=== PATIENT | male | born 1970 | race Caucasian/White ===

== ENCOUNTER 2024-12-26 18:47 | Outpatient (CLI) | payer OTHER, SELFPAY ==
--- NOTE | ~2024-12-26 | CT_ITS ---
CLINICAL INDICATION: Cough and shortness of breath COMPARISON: None. TECHNIQUE: Multiple contiguous axial images of the chest, abdomen and pelvis were performed without t he administration of intravenous contrast The dose-length product (DLP) was 1864.30 mGy-cm. Automated exposure control and iterative reconstruction technique were employed. FINDINGS/OBSERVATIONS: Chest: Incomplete evaluation of a large, densely calcified thyroid gland. Large right and trace left-sided pleural effusion with adjacent compressive atelectasis. Multiple nonpathologically enlarged lymph nodes are identified within the mediastinum, a nonspecific finding. The heart is of normal size, without pericardial effusion. Trace degenerative disease within the lower cervical and thoracic spine without acute compression fra cture. Liver: The liver demonstrates homogeneous attenuation and is enlarged measuring 20 cm in longitudinal dimens ion. Gallbladder and biliary system: Multiple stones are identified within the gallbladder which is only minimally distended, and otherwis e unremarkable. Pancreas: Limited evaluation of the pancreas secondary to the lack of intravenous contrast. Spleen: Punctate calcifications identified within the splenic parenchyma, suggesting prior granulomat ous disease. The remainder of the spleen demonstrates homogeneous attenuation and is not enlarged measuring 10 cm in longitudinal dimension. Kidneys: The bilateral kidneys are unremarkable, without hydronephrosis or renal calculi. Adrenal glands: Unremarkable. Gastrointestinal tract: Significant fecal stasis within the colon. Appendix: The air-filled appendix is of normal caliber (axial series, images 184 through 199). Vasculature: Unremarkable. Lymph nodes: Limited evaluation without intravenous contrast Pelvic structures: The bladder is only minimally distended, and demonstrates moderate wall thickening and surrounding in flammatory change. The prostate gland is not enlarged. Body wall and musculoskeletal: Moderate anasarca. Schmorl's nodes within the lumbosacral spine. No acute fracture. IMPRESSION: Large right and small left-sided pleural effusion. Significant fecal stasis within the colon. Hepatomegaly. Findings a surrounding the bladder for which cystitis is suspected. Moderate anasarca. Incomplete evaluation of the thyroid gland which is asymmetrically enlarged within the right lobe and demonstrates bulky calcifications. Reviewed, dictated and finalized at location A. OL CHILD CARE ATTENDANT IMPRESSION: Large right and small left-sided pleural effusion. Significant fecal stasis within the colon. Hepatomegaly. Findings a surrounding the bladder for which cystitis is suspected. Moderate anasarca. Incomplete evaluation of the thyroid gland which is asymmetrically enlarged wit hin the right lobe and demonstrates bulky calcifications.
--- OUTSIDE RECORDS SUMMARY | 2024-12-26 18:53 | XMS_ITS | Encounter Summary ---
Author Organization [facility] Address [facility] [place] [address] Care Team Providers Care Diplomatic Interpreter Name Role Phone La Iverson TROLLEY WORKER Primary Care Provider [phone] Michelle Apodaca MD Unavailable [phone] Joby Clay NP Primary Care Provider + [phone] Alyssa Longo MD Primary Care Provider [phone] Derick Carroll MD Unavailable [phone] Encounter Details Date Type Department Care Team (Late st Contact Info) Description 06/28/2020 Abstract [facility] [address] [place] [id number] Abstract, Doc [facility] Social History Tobacco Use Types Packs/Day Years Used Date Smoking Tobacco: Never Smokeless Tobacco: Never Alcohol Use Standard Drinks/Week Comments Never 0 (1 standard drink = 0.6 oz pur e alcohol) AUDIT-C Answer Date Recorded Q1: How often do you have a drink containing alc ohol? 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 Unable to assess 06/22/2020 10:08 AM CDT documented as of this encounter Plan of Treatment Upcoming Encounters Date Type Department Care Team (Late st Contact Info) Description 05/28/2025 10:45 AM CDT [facility] [address] [place] [phone] Michelle Apodaca MD [address] [place] [address] documented as of this encounter Procedures Procedure Name Priority Date/Time Associated Diagnosis Comments CMP (ABSTRACTED LAB) Routine 11/22/2019 CBC W/ MANUAL DIFF (OUTSIDE) Routine 11/22/2019 HEMOGLOBIN, GLYCOSYLATED Routine 11/22/2019 LIPID PANEL Routine 11/22/2019 documented in this encounter Results * CBC W/ MANUAL DIFF (OUTSIDE) (11/22/2019) WBC 8.55 RBC 5.62 HGB 15.5 HCT 47.1 MCV 83.8 MCH 27.6 MCHC 32.9 RDW 13.8 PLT 199 MPV 12.0 NEUTROPHILS % 65 LYMPHOCYTES % 22 MONOCYTES % 7 EOSINOPHILS % 4 BASOPHILS % 1 11/22/2019 Reji Romero MD LABORATORY Final Result * HEMOGLOBIN, GLYCOSYLATED (11/22/2019) HGB A1C 8.4 % 11/22/2019 Reji Romero MD LABORATORY Final Result * LIPID PANEL (11/22/2019) CHOLESTEROL 90 HDL 40.0 TRIGLYCERIDES 42 CHOL/HDL RATIO 2.3 LDL (CALCULATED) 42 11/22/2019 Reji Romero MD LABORATORY Final Result * (ABNORMAL) CMP (ABSTRACTED LAB) (11/22/2019) SODIUM S/P/B 142.0 POTASSIUM S/P/B 4.8 CHLORIDE S/P/B 103 CO2 29.0 BUN 18 CREATININE S/P/B 0.9 0.7 - 1.3 EGFR NON-AFR. AMER. 95(A) <=90 CALCIUM S/P/B 9.3 GLUCOSE 128 mg/dL TOTAL PROTEIN S/P/B 7.2 ALBUMIN S/P/B 3.8 3.5 - 5.0 AST 29 ALT 47 ALKALINE PHOSPHATASE S/P/B 80 BILIRUBIN TOTAL S/P/B 0.6 11/22/2019 Reji Romero MD LAB-OUTSIDE/ABSTRACTED Final Re sult documented in this encounter Visit Diagnoses Not on filedocumented in this encounter Care Teams Diplomatic Interpreter Relationship Specialty Start Date End Date La Iverson NP [address] [place] [phone] PCP - General FAMILY PRACTICE 05/31/20 08/02/23 [place] [address] [address] PCP - General NURSE PRACTITIONER 08/03/23 05/20/24 [place] [address] [place] [address] PCP - General FAMILY PRACTICE 05/21/24 Michelle Apodaca MD [address] [place] [phone] [place] [employer] Supervisor CARDIOVASCULAR DISEASE 05/31/20 Derick Carroll MD [address] [place] [address] Consulting Physician INTERNAL MEDICINE 05/30/24 documented as of this encounter
--- OUTSIDE RECORDS SUMMARY | 2024-12-26 18:54 | XMS_ITS | Clinical Summary ---
Author Organization [facility] Address [address] [place] [phone] Care Team Providers Care Finish Patcher Name Role Phone No, Physician Primary Care Provider [phone] Allergies No known active allergies Medications levoFLOXacin (LEVAQUIN) 500 mg tablet Take 1 tablet (500 mg total) by mouth daily. 10 tablet 12/09/2017 Active HYDROcodone-kemar taminophen (NORCO) 5-325 mg per tabletIndicatio ns:Pain Take 1-2 tablets by mouth every 4 (four) hours as needed for pain. Do not exceed 8 tablets/day. 20 tablet 12/09/2017 Active Active Problems No known active problems Medical History Medical History Date Comments Diabetes mellitus (HCC) Kidney stones Social History Tobacco Use Types Packs/Day Years Used Date Smoking Tobacco: Never Smokeless Tobacco: Never Sex and Gender Information Value Date Recorded Sex Assigned at Not on file Legal Sex Male 9:20 PM HEMATOLOGY TECHNOLOGIST Gender Identity Not on file Sexual Orientation Not on file Obstetrics History Last Filed Vital Signs Vital Sign Reading Time Taken Comments Blood Pressure 143/87 12/09/2017 3:15 PM HEMATOLOGY TECHNOLOGIST Pulse 84 12/09/2017 3:15 PM HEMATOLOGY TECHNOLOGIST Temperature 36.8 C (98.3 F) 12/09/2017 11:37 AM HEMATOLOGY TECHNOLOGIST Respiratory Rate 14 12/09/2017 3:15 PM HEMATOLOGY TECHNOLOGIST Oxygen Saturation 97% 12/09/2017 3:15 PM HEMATOLOGY TECHNOLOGIST Inhaled Oxygen Concentration - - Weight 120.2 kg (265 lb) 12/09/2017 11:37 AM HEMATOLOGY TECHNOLOGIST Height 175.3 cm (5' 9 ) 12/09/2017 11:37 AM HEMATOLOGY TECHNOLOGIST Body Mass Index 39.13 12/09/2017 11:37 AM HEMATOLOGY TECHNOLOGIST Plan of Treatment Not on file Care Teams Finish Patcher Relationship Specialty Start Date End Date No, Physician PCP - General 10/13/17
--- OUTSIDE RECORDS SUMMARY | 2024-12-26 18:54 | XMS_ITS | Encounter Summary ---
Author Organization [facility] Address [facility] [place] [address] Care Team Providers Care Product Sales Representative Name Role Phone La Iverson SPACECRAFT SYSTEMS ENGINEER Primary Care Provider [phone] Michelle Apodaca MD Unavailable [phone] Joby Clay SPACECRAFT SYSTEMS ENGINEER Primary Care Provider + [phone] Alyssa Longo MD Primary Care Provider [phone] Derick Carroll MD Unavailable [phone] Encounter Details Date Type Department Care Team (Late st Contact Info) Description 02/17/2020 Abstract [facility] [address] [place] [address] Abstract, Doc [facility] Social History Tobacco Use Types Packs/Day Years Used Date Smoking Tobacco: Never Sex and Gender Information Value Date Recorded Sex Assigned at Not on file Legal Sex 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 Gender Identity Not on file Sexual Orientation Not on file 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 Not on file Not on file documented as of this encounter Plan of Treatment Upcoming Encounters Date Type Department Care Team (Late st Contact Info) Description 05/28/2025 10:45 AM CDT Office Visit [facility] [phone] Michelle Apodaca MD [address] [place] [phone] documented as of this encounter Visit Diagnoses Not on filedocumented in this encounter Care Teams Product Sales Representative Relationship Specialty Start Date End Date La Iverson NP [address] [place] [phone] PCP - General FAMILY PRACTICE 05/31/20 08/02/23 [place] [address] [address] PCP - General NURSE PRACTITIONER 08/03/23 05/20/24 [place] [address] [place] [address] PCP - General FAMILY PRACTICE 05/21/24 Michelle Apodaca MD [address] [place] [address] [employer] Media Specialist CARDIOVASCULAR DISEASE 05/31/20 Derick Carroll MD [address] [place] [phone] Consulting Physician INTERNAL MEDICINE 05/30/24 documented as of this encounter
--- OUTSIDE RECORDS SUMMARY | 2024-12-26 18:54 | XMS_ITS | Data Portability ---
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 -Renal ultrasound done in April 2024 at [facility]. 1. Renal failure. Assume some element of diabetic nephropathy. Creatinine has worsened from 1.26 Dec 2023, 2.0 (April 12, 2024) and up to 2.4 (05/06/24). eGFR 30%. -WIll review his renal ultrasound. 2. Blood pressure: stable taking Clonidine, furosemide 60 daily, and metoprolol. -lisinopril 20 mg daily and KCl held for now. due to having a high K- K. -Lasix lowered to 80 mg daily from 120 mg daily -1999 fluid restriction -Echocardiogram ordered per PMD 3. Hemoglobin: stable 4. Bone disease: will check iPTH and Vitamin D levels. 5. Diabetes taking Jardiance, and trulicity. 6. Disposition: Return to clinic in 3-4 weeks. Labs today: Renal function panel, CBC, microalbumin, UPEP, SPEP, iPTH, 25 OH vitamin D -Renal ultrasound done in April 2024 at [facility]. HepBSag, Hep C Ab, ANCA, JOSE ROBERTO, C3, C4, anti-glomerular basement antibody , urine eosinophils, urinalysis Labs prior to return: Renal function panel, CBC, microalbumin. [email or web address] Not available 05/19/2024 17:24:57 06/11/2024 06/11/2024 54-year-old gentleman from [place], close to [place], with a history of hypertension, diabetes since 2000 with neuropathy and retinopathy that we are following for kidney disease. -Renal ultrasound done in April 2024 at [facility]. 1. CKD stage III with a creatinine that has worsened from 1.7 (Dec 2023), 2.0 (April 12, 2024), 2.4 (05/06/24) and 2.6 (05/19/24) with moderate proteinuria. eGFR 27%. May be secondary to aggressive diabetic nephropathy versus intermittent dehydration with significant diuretic dosage and he is does appear dry on exam. However with the rapidly worsening creatinine, plan for renal biopsy for definitive diagnosis. -Will check renal function panel and microalbumin today -Will call patient tomorrow with lab results to discuss our plan. Low threshold to reduce his diuretics if he has any signs of intravascular dehydration or worsening renal function. 2. Blood pressure: Stable but with continued orthostatic hypotension taking furosemide 80 daily, lisinopril 10 mg daily, and metoprolol 25 mg daily. Additionally, he is on midodrine 2.5 mg twice daily. -Will hold lisinopril in the setting of DONAL as well as hyperkalemia. -Will increase his midodrine to 5 mg twice daily. -1999 fluid restriction -Echocardiogram ordered per PMD. 3. Hemoglobin: Stable at 16.2 4. Bone disease: iPTH 132 and Vitamin D level of 12. On vit D weekly x 6 weeks and monthly thereafter. 5. Diabetes controlled taking Jardiance, and trulicity. 6. Hyperkalemia. He reports he was told his potassium was high by another provider on recent labs. He is unsure what that level was but was instructed to take Veltassa 8.4 mg daily. I do have concerns about this being dosed daily. Additionally, stopping his lisinopril will help with his hyperkalemia. Told him to temporarily hold this medication I will obtain a potassium level today and call him tomorrow with further instructions. Advised that I would like nephrology to manage any hyperkalemia treatment. 7. Disposition: Will call patient tomorrow to determine and follow-up appointment based on his lab results today. Labs today: Renal function panel, CBC, microalbumin, RENAL BIOPSY Labs prior to return: Renal function panel, CBC, microalbumin. Please discontinue lisinopril. Please increase midodrine to 5 mg twice daily. Please discontinue Veltassa. [email or web address] Not available 06/11/2024 16:21:34 07/16/2024 07/16/2024 54-year-old gentleman from [place], close to [place], with a history of hypertension, diabetes since 2000 with neuropathy and retinopathy that we are following for kidney disease. -Renal ultrasound done in April 2024 at [facility]. 1. CKD stage III with a creatinine that has worsened from 1.7 (Dec 2023), 2.0 (April 12, 2024), 2.4 (05/06/24) and 2.6 (05/19/24) with moderate proteinuria. eGFR 27%. May be secondary to aggressive diabetic nephropathy versus intermittent dehydration with significant diuretic dosage and he did appear dry on exam. We were considering a biopsy but with the improved creatinine on a lower dose of diuretics, will hold for now. Should he have any worsening of proteinuria or rapid worsening of kidney function, will revisit this. -Creatinine improved at 2.1 with a microalbumin of 3060. -He continues to appear mildly dry on exam and will decrease his furosemide as noted in #2. Plan to recheck a renal function panel in 1 month and will consider discontinuing Lasix if he has any worsening renal function or appears intravascularly dry on labs. 2. Blood pressure: Elevated taking furosemide 80 daily (out of for 3 days), metoprolol 50 mg daily (new dose not started yet), and midodrine 5 mg BID. -Held lisinopril in the setting of DONAL as well as hyperkalemia. -1999 fluid restriction -Echocardiogram ordered per PMD. -Will discontinue midodrine and decrease furosemide to 20 mg daily. -Primary care has been handling hypertension, recommend addition of nifedipine should he need any further hypertensive management. 3. Hemoglobin: Stable at 14.6 4. Bone disease: iPTH increased at 209 and Vitamin D level of 12. On vit D weekly x 6 weeks and monthly thereafter. Will continue to trend PTH with repletion of vitamin D. 5. Diabetes controlled taking Jardiance, and trulicity. 6. Hyperkalemia. Resolved with a current potassium of 4.6. Recommended continued low potassium diet. 7. Disposition: Return to clinic in 2 months. Labs in 1 month: Renal function panel. Labs prior to return: Renal function panel, CBC, microalbumin. Please decrease furosemide to 20 mg daily. He needs a new prescription. Alphonse in [place]. Please discontinue midodrine. [email or web address] Not available 07/16/2024 11:54:28 09/10/2024 09/10/2024 54-year-old gentleman from [place], close to [place], with a history of hypertension, diabetes since 2000 with neuropathy and retinopathy that we are following for kidney disease. -Renal ultrasound done in April 2024 at [facility]. 1. CKD stage III with a creatinine that has worsened from 1.7 (Dec 2023), 2.0 (April 12, 2024), 2.4 (05/06/24) and 2.6 (05/19/24) with moderate proteinuria. eGFR 27%. May be secondary to aggressive diabetic nephropathy versus intermittent dehydration with significant diuretic dosage and he did appear dry on exam. We were considering a biopsy but with the improved creatinine on a lower dose of diuretics, will hold for now. Should he have any worsening of proteinuria or rapid worsening of kidney function, will revisit this. -Creatinine currently mildly increased at 2.2 with an improved microalbumin of 1432. -Recommend continued increased hydration. -Currently on furosemide. With dry mucous membranes and an elevated BUN to creatinine ratio, plan to stop furosemide and have him notify me for any signs of increased water weight. 2. Blood pressure: Elevated taking furosemide 20 mg daily, metoprolol 50 mg daily, and nifedipine 30 mg daily. -Held lisinopril in the setting of DONAL as well as hyperkalemia. -1999 fluid restriction -Echocardiogram ordered per PMD. -Will discontinue furosemide and increase nifedipine to 30 mg twice daily. 3. Hemoglobin: Stable at 13.8 4. Bone disease: iPTH increased at 209 most recently and Vitamin D level of 12. He completed 6 weeks of weekly ergocalciferol but has not since this time. Will start ergocalciferol 50,000 units monthly. Will continue to trend PTH with repletion of vitamin D. 5. Diabetes controlled taking Jardiance. Currently out of Trulicity due to an insurance issue. No recent hemoglobin A1c available. 6. Hyperkalemia. Resolved with a current potassium of 4.1. Recommended continued low potassium diet. 7. Disposition: Return to clinic in 3 months. Labs prior to return: Renal function panel, CBC, microalbumin, PTH. Please start ergocalciferol 50,000 units monthly Please increase nifedipine to 30 mg twice daily Please stop furosemide eze Not available 09/10/2024 15:01:29 12/10/2024 12/10/2024 54-year-old gentleman from [place], close to [place], with a history of hypertension, diabetes since 2000 with neuropathy and retinopathy that we are following for kidney disease. -Renal ultrasound done in April 2024 at [facility]. 1. CKD stage III with a creatinine that has worsened from 1.7 (Dec 2023), 2.0 (April 12, 2024), 2.4 (05/06/24) and 2.6 (05/19/24) with moderate proteinuria. eGFR 27%. May be secondary to aggressive diabetic nephropathy versus intermittent dehydration with significant diuretic dosage and he did appear dry on exam. We were considering a biopsy but with the improved creatinine on a lower dose of diuretics, will hold for now. Should he have any worsening of proteinuria or rapid worsening of kidney function, will revisit this. -Creatinine currently increased 2.2-->2.8 with an improved microalbumin of 1750. I believe this increase is related to intravascular dehydration as he appears very dry on exam and was restarted on furosemide 20 mg daily that I had previously discontinued. Will discontinue furosemide as his swelling is unilateral and I do not believe it is related to fluid overload. -Recommend continued increased hydration and we will recheck a renal function panel in 1 month after stopping furosemide. 2. Blood pressure: Elevated on metoprolol 50 mg daily and nifedipine 60 mg daily. -Held lisinopril in the setting of DONAL as well as hyperkalemia. -1999 fluid restriction -Echocardiogram ordered per PMD. -Will increase nifedipine to 60 mg twice daily 3. Hemoglobin: Stable at 13.8 4. Bone disease: iPTH improved at 133 and Vitamin D level of 12. He completed 6 weeks of weekly ergocalciferol and now on ergocalciferol 50,000 units monthly. Will continue to trend PTH with repletion of vitamin D. 5. Diabetes controlled taking Jardiance and Trulicity. No recent hemoglobin A1c available. 6. Hyperkalemia. Resolved with a current potassium of 4.5. Recommended continued low potassium diet. 7. Disposition: Return to clinic in 3 months. Lab in 1 month: Renal function panel Please increase nifedipine to 60 mg twice daily and renew ergocalciferol 50,000 units monthly. Alphonse Scott. eze Not available 12/10/2024 16:04:17 Plan of Treatment Reminders Order Date Submit Date Provider Last Modified By Organization Details Last Modified Time Details Appointments [facility] Patient 10.EST 2024 09:10A M Dr. Torsten Stock Not available Not available Not available [facility] Patient 15.EST 2024 02:45P M Sandrine Infante Not available Not available Not available Lab None recorded . Referral None recorded . Procedures None recorded . Surgeries None recorded . Imaging None recorded . Medication Orders None recorded . Patient TargetsNo targets recorded. Patient InstructionsNo instructions recorded. Reason for Referral None Reported. Results Created Date Observation Date Name Description Value Unit Range Abnormal Flag Note LastModifiedBy Organization Detail LastModifiedTime 05/19/20 24 05/20/2024 CBC CBC Not Available [facility] [address] [place] [address], [id number], 05/20/2024 12:23:27 05/19/20 24 05/20/2024 CBC WBC 10.2 K/uL 4.8- 10.8 Not Available [facility] [address] [place] [address], [id number], 05/20/2024 12:23:27 05/19/20 24 05/20/2024 CBC RBC 5.69 M/uL 4.70-6 .10 Not Available [facility] [address] [place] [address], [id number], 05/20/2024 12:23:27 05/19/20 24 05/20/2024 CBC HGB 16.2 g/dL 14.0-1 8.0 Not Available [facility] [address] [place] [address], [id number], 05/20/2024 12:23:27 05/19/20 24 05/20/2024 CBC HCT 49.2 % 42.0-5 2.0 Not Available [facility] [address] [place] [address], [id number], 05/20/2024 12:23:27 05/19/20 24 05/20/2024 CBC MCV 86.5 fL 80.0-9 4.0 Not Available [facility] [address] [place] [address], [id number], 05/20/2024 12:23:27 05/19/20 24 05/20/2024 CBC MCH 28.5 pg 27.0- 31.0 Not Available [facility] [address] [place] [address], [id number], 05/20/2024 12:23:27 05/19/20 24 05/20/2024 CBC MCHC 32.9 g/dL 32.0-3 6.0 Not Available [facility] [address] [place] [address], [id number], 05/20/2024 12:23:27 05/19/20 24 05/20/2024 CBC RDW-SD 45.1 fL 35.1 - 46.3 Not Available [facility] [address] [place] [address], [id number], 05/20/2024 12:23:27 05/19/20 24 05/20/2024 CBC plt 206 K/uL 130-40 0 Not Available [facility] [address] [place] [address], [id number], 05/20/2024 12:23:27 05/19/20 24 05/20/2024 CBC MPV 13.6 fL 7.5- 11.8 high Not Available [facility] [address] [place] [address], [id number], 05/20/2024 12:23:27 05/19/20 24 05/20/2024 renal funct ion panel , serum renal function panel Not Available [facility] [address] [place] [address], [id number], 05/20/2024 12:37:43 05/19/20 24 05/20/2024 renal funct ion panel , serum sodium 138 mmol/ L 136-14 6 Not Available [facility] [address] [place] [address], [id number], 05/20/2024 12:37:43 05/19/20 24 05/20/2024 renal funct ion panel , serum potassium 4.9 mmol/ L 3.5-5. 1 Not Available [facility] [address] [place] [address], [id number], 05/20/2024 12:37:43 05/19/20 24 05/20/2024 renal funct ion panel , serum chloride 105 mmol/ L 98-110 Not Available [facility] [address] [place] [address], [id number], 05/20/2024 12:37:43 05/19/20 24 05/20/2024 renal funct ion panel , serum CO2 22 mEq/L 20-32 Not Available [facility] [address] [place] [address], [id number], 05/20/2024 12:37:43 05/19/20 24 05/20/2024 renal funct ion panel , serum anion gap 16 mmol/ L 10-22 Not Available [facility] [address] [place] [address], [id number], 05/20/2024 12:37:43 05/19/20 24 05/20/2024 renal funct ion panel , serum glucose 106 mg/dL 70-100 high Not Available [facility] [address] [place] [address], [id number], 05/20/2024 12:37:43 05/19/20 24 05/20/2024 renal funct ion panel , serum calcium 10.0 mg/dL 8.4-10 .4 Not Available [facility] [address] [place] [address], [id number], 05/20/2024 12:37:43 05/19/20 24 05/20/2024 renal funct ion panel , serum albumin 4.7 g/dL 3.5-5. 3 Not Available [facility] [address] [place] [address], [id number], 05/20/2024 12:37:43 05/19/20 24 05/20/2024 renal funct ion panel , serum phosphorus 5.7 mg/dL 2.7-4. 5 high Not Available [facility] [address] [place] [address], [id number], 05/20/2024 12:37:43 05/19/20 24 05/20/2024 renal funct ion panel , serum BUN 71 mg/dL 7-21 high Not Available [facility] [address] [place] [address], [id number], 05/20/2024 12:37:43 05/19/20 24 05/20/2024 renal funct ion panel , serum creatinine 2.6 mg/dL 0.7-1. 3 high Not Available [facility] [address] [place] [address], [id number], 05/20/2024 12:37:43 05/19/20 24 05/20/2024 renal funct ion panel , serum GFR(non-afri can georgian) 27 Not Available [facility] [address] [place] [address], [id number], 05/20/2024 12:37:43 05/19/20 24 05/20/2024 renal funct ion panel , serum GFR() 33 ([employer]ICER GHAZLA KIDNE Y DISEA SE HAS A GFR LESS THAN 60 ML/VA N/1.7 3 MM FOR A PERIO D OF THREE MONTH S OR MORE. ) Not Available [facility] [address] [place] [address], [id number], 05/20/2024 12:37:43 05/19/20 24 05/20/2024 vitam in D, 25-hy droxy , total , serum vitamin D 25-hydroxy totl 12.0 NG/mL 30.0-8 0.0 low Less than 20 ng/mL Defic iency 20-29 ng/mL Insuf ficie ncy 30-80 ng/mL Optim al Great er than 80 ng/mL Possi ble toxic ity Not Available [facility] [address] [place] [address], [id number], 05/20/2024 12:41:54 05/19/20 24 05/20/2024 HBsAg (hepa titis B surfa ce Ag), serum hepatitis B surface Ag NONREA CTIVE nonrea ctive Not Available [facility] [address] [place] [address], [id number], 05/20/2024 12:54:49 05/19/20 24 05/20/2024 hepat itis C Ab, serum hepatitis C Ab NONREA CTIVE nonrea ctive Not Available [facility] [address] [place] [address], [id number], 05/20/2024 13:14:50 05/19/20 24 05/20/2024 urina lysis compl ete, refle x cultu re urinalysis w/reflex cult LOW LEVEL S OF HEMOG LOBIN IN ABSEN CE OF HEMAT URIA MAY NOT BE CLINI RICHARD SIGNI FICAN T. Not Available [facility] [address] [place] [address], [id number], 05/20/2024 17:59:17 05/19/20 24 05/20/2024 urina lysis compl ete, refle x cultu re color YELLOW Not Available [facility] [address] [place] [address], [id number], 05/20/2024 17:59:17 05/19/20 24 05/20/2024 urina lysis compl ete, refle x cultu re clarity CLOUDY Not Available [facility] [address] [place] [address], [id number], 05/20/2024 17:59:17 05/19/20 24 05/20/2024 urina lysis compl ete, refle x cultu re pH 5.0 5.0-7. 5 Not Available [facility] [address] [place] [address], [id number], 05/20/2024 17:59:17 05/19/20 24 05/20/2024 urina lysis compl ete, refle x cultu re specific gravity 1.016 1.000- 1.030 Not Available [facility] [address] [place] [address], [id number], 05/20/2024 17:59:17 05/19/20 24 05/20/2024 urina lysis compl ete, refle x cultu re blood NEGATI VE negati ve Not Available [facility] [address] [place] [address], [id number], 05/20/2024 17:59:17 05/19/20 24 05/20/2024 urina lysis compl ete, refle x cultu re bilirubin NEGATI VE negati ve Not Available [facility] [address] [place] [address], [id number], 05/20/2024 17:59:17 05/19/20 24 05/20/2024 urina lysis compl ete, refle x cultu re urobilinogen 0.2 0.2-1. 0 Not Available [facility] [address] [place] [address], [id number], 05/20/2024 17:59:17 05/19/20 24 05/20/2024 urina lysis compl ete, refle x cultu re ketone NEGATI VE negati ve Not Available [facility] [address] [place] [address], [id number], 05/20/2024 17:59:17 05/19/20 24 05/20/2024 urina lysis compl ete, refle x cultu re glucose 3+ negati ve abnormal Not Available [facility] [address] [place] [address], [id number], 05/20/2024 17:59:17 05/19/20 24 05/20/2024 urina lysis compl ete, refle x cultu re protein 3+ negati ve abnormal Not Available [facility] [address] [place] [address], [id number], 05/20/2024 17:59:17 05/19/20 24 05/20/2024 urina lysis compl ete, refle x cultu re nitrite NEGATI VE negati ve Not Available [facility] [address] [place] [address], [id number], 05/20/2024 17:59:17 05/19/20 24 05/20/2024 urina lysis compl ete, refle x cultu re leukocytes NEGATI VE negati ve Not Available [facility] [address] [place] [address], [id number], 05/20/2024 17:59:17 05/19/20 24 05/20/2024 urina lysis compl ete, refle x cultu re review * Micro scopi c resul ts revie wed by [facility] . Not Available [facility] [address] [place] [address], [id number], 05/20/2024 17:59:17 05/19/20 24 05/20/2024 urina lysis compl ete, refle x cultu re RBC 3-5 0-2/hp f abnormal Not Available [facility] [address] [place] [address], [id number], 05/20/2024 17:59:17 05/19/20 24 05/20/2024 urina lysis compl ete, refle x cultu re WBC 0-5 0-5/hp f Not Available [facility] [address] [place] [address], [id number], 05/20/2024 17:59:17 05/19/20 24 05/20/2024 urina lysis compl ete, refle x cultu re squamous epithelial 0-2 0-10/h pf Not Available [facility] [address] [place] [address], [id number], 05/20/2024 17:59:17 05/19/20 24 05/20/2024 urina lysis compl ete, refle x cultu re bacteria NONE SEEN none Not Available [facility] - [facility] [address] [place] [address], [id number], 05/20/2024 17:59:17 05/19/20 24 05/20/2024 urina lysis compl ete, refle x cultu re hyaline cast 11-20 0-2/lp f abnormal Not Available [facility] [address] [place] [address], [id number], 05/20/2024 17:59:17 05/19/20 24 05/20/2024 urina lysis compl ete, refle x cultu re calcium oxalate crystal PRESEN T absent abnormal Not Available [facility] [address] [place] [address], [id number], 05/20/2024 17:59:17 05/19/20 24 05/20/2024 eosin ophil s, urine eosinophil count, urine NEGATI VE Not Available [facility] [address] [place] [address], [id number], 05/20/2024 18:30:49 05/19/20 24 05/20/2024 PTH (para thyro id hormo ne), intac t, serum or plasm a PTH-intact high Not Available [facility] [address] [place] [address], [id number], 05/20/2024 18:35:03 05/19/20 24 05/20/2024 PTH (para thyro id hormo ne), intac t, serum or plasm a PTH-intact 132 pg/mL 12-88 high Not Available [facility] [address] [place] [address], [id number], 05/20/2024 18:35:03 05/19/20 24 05/20/2024 PTH (para thyro id hormo ne), intac t, serum or plasm a calcium 9.8 mg/dL 8.4-10 .4 Not Available [facility] [address] [place] [address], [id number], 05/20/2024 18:35:03 05/19/20 24 05/21/2024 C4 (comp lemen t), serum or plasm a complement C4 30 mg/dL 12-38 Not Available [facility] [address] [place] [address], [id number], 05/21/2024 08:19:49 05/19/20 24 05/21/2024 C3 (comp lemen t), serum or plasm a complement C3 133 mg/dL 82-167 Not Available [facility] [address] [place] [address], [id number], 05/21/2024 08:19:51 05/19/20 24 05/21/2024 micro album in, urine microalbumin ,random panel Not Available [facility] [address] [place] [address], [id number], 05/21/2024 12:16:06 05/19/20 24 05/21/2024 micro album in, urine microalbumin random 230.0 mg/dL Not Available [facility] [address] [place] [address], [id number], 05/21/2024 12:16:06 05/19/20 24 05/21/2024 micro album in, urine creatinine, urine random 88 mg/dL Refer ence range not estab lishe d for other than 24 hour colle ction . Not Available [facility] [address] [place] [address], [id number], 05/21/2024 12:16:06 05/19/20 24 05/21/2024 micro album in, urine microalb/cre at ratio 2614 ug/mg (Micr oalbu min/C reati nine Ratio : Narda l: <30 UG/MG Creat Micro album inuri a: 30-30 0 UG/MG Creat Clini jennie Album inuri a: >300 UG/MG Creat The class ifica tion of a patie nt's prote inuri a shoul d be based upon at least 2 or 3 abnor mal resul ts colle cted withi n a 3 to 6 month time frame . *No narda l range s have been estab lishe d for rando m Micro album in or Creat inine .) Not Available [facility] [address] [place] [address], [id number], 05/21/2024 12:16:06 05/19/20 24 05/21/2024 prote in elect ropho resis panel , serum or plasm a protein electrop, serum Not Available [facility] [address] [place] [address], [id number], 05/21/2024 13:40:25 05/19/20 24 05/21/2024 prote in elect ropho resis panel , serum or plasm a total protein, 7.6 g/dL 6.0-8. 5 Not Available [facility] [address] [place] [address], [id number], 05/21/2024 13:40:25 05/19/20 24 05/21/2024 prote in elect ropho resis panel , serum or plasm a albumin 4.1 g/dL 2.9-4. 4 Not Available [facility] [address] [place] [address], [id number], 05/21/2024 13:40:25 05/19/20 24 05/21/2024 prote in elect ropho resis panel , serum or plasm a [id number] ulins 0.2 g/dL 0.0-0. 4 Not Available [facility] [address] [place] [address], [id number], 05/21/2024 13:40:25 05/19/20 24 05/21/2024 prote in elect ropho resis panel , serum or plasm a [id number]-5-[id number] ulins 1.1 g/dL 0.4-1. 0 high Not Available [facility] [address] [place] [address], [id number], 05/21/2024 13:40:25 05/19/20 24 05/21/2024 prote in elect ropho resis panel , serum or plasm a beta-1 globulin 1.0 g/dL 0.7-1. 3 Not Available [facility] [address] [place] [address], [id number], 05/21/2024 13:40:25 05/19/20 24 05/21/2024 prote in elect ropho resis panel , serum or plasm a gamma globulins 1.2 g/dL 0.4-1. 8 Not Available [facility] [address] [place] [address], [id number], 05/21/2024 13:40:25 05/19/20 24 05/21/2024 prote in elect ropho resis panel , serum or plasm a M spike NOT OBSERV ED g/dL not obser. Not Available [facility] [address] [place] [address], [id number], 05/21/2024 13:40:25 05/19/20 24 05/21/2024 prote in elect ropho resis panel , serum or plasm a globulin 3.5 g/dL 2.2-3. 9 Not Available [facility] [address] [place] [address], [id number], 05/21/2024 13:40:25 05/19/20 24 05/21/2024 prote in elect ropho resis panel , serum or plasm a albumin/glob ulin ratio 1.2 0.7-1. 7 Not Available [facility] [address] [place] [address], [id number], 05/21/2024 13:40:25 05/19/20 24 05/21/2024 prote in elect ropho resis panel , serum or plasm a interpretati ons The SPE oscarte rn demon strat es eleva tion of regio ns conta ining acute phase prote ins sugge sting an acute /suba cute infla mmato ry respo nse. Some condi tions in which this oscarte rn has been obser billie inclu de: bacte rial, viral or oracio itic infec tion; mecha nical , physi jennie or chemi jennie traum a; and cardi ac failu re. The gamma globu jaimie regio n is unrem arkab le and evide nce of monoc lonal prote in is not appar ent. Not Available [facility] [address] [place] [address], [id number], 05/21/2024 13:40:25 05/19/20 24 05/22/2024 anca panel , serum anca, complete Not Available [facility] [address] [place] [address], [id number], 05/22/2024 20:39:25 05/19/20 24 05/22/2024 anca panel , serum myeloperoxid ase Ab <0.2 units 0.0-0. 9 Not Available [facility] [address] [place] [address], [id number], 05/22/2024 20:39:25 05/19/20 24 05/22/2024 anca panel , serum proteinase-3 Ab, anca <0.2 units 0.0-0. 9 Not Available [facility] [address] [place] [address], [id number], 05/22/2024 20:39:25 05/19/20 24 05/22/2024 anca panel , serum C-anca titer <1:20 titer neg:<1 :20 Not Available [facility] [address] [place] [address], [id number], 05/22/2024 20:39:25 05/19/20 24 05/22/2024 anca panel , serum P-anca titer <1:20 titer neg:<1 :20 The prese nce of posit fior fluor escen ce exhib iting P-ANC A or C-ANC A patte rns alone is not speci fic for the diagn osis of Wegen er's Granu lomat osis (WG) or micro scopi c polya ngiit is. Decis ions about treat ment shoul d not be based solel y on ANCA IFA resul ts. The [employer] n[employer] nsus recom mends follo w up testi ng of posit fior sera with both KY-3 and MPO-A NCA enzym e immun oassa ys. As many as 5% serum sampl es are posit fior only by EIA. Ref. AM J Clin Patho l 1999; 111:5 07-51 3. Not Available [facility] [address] [place] [address], [id number], 05/22/2024 20:39:25 05/19/20 24 05/22/2024 anca panel , serum atypical P anca titer 1:80 titer neg:<1 :20 abnormal The atypi jennie pANCA patte rn has been obser billie in a signi fican t perce ntage of patie nts with ulcer ative colit is, prima ry scler osing chola ngiti s and autoi mmune hepat itis. Not Available [facility] [address] [place] [address], [id number], 05/22/2024 20:39:25 05/19/20 24 05/22/2024 glome rular basem ent membr ane Ab, quant itati ve, serum glomerular basement Ab <0.2 units 0.0-0. 9 Not Available [facility] [address] [place] [address], [id number], 05/22/2024 20:39:26 05/19/20 24 05/23/2024 elect ropho resis panel , urine protein elect. urine rand Not Available [facility] [address] [place] [address], [id number], 05/23/2024 11:38:05 05/19/20 24 05/23/2024 elect ropho resis panel , urine protein, tot;random 394.1 mg/dL not estab. Resul ts confi rmed on dilut ion. Not Available [facility] [address] [place] [address], [id number], 05/23/2024 11:38:05 05/19/20 24 05/23/2024 elect ropho resis panel , urine creatinine, random urine 86.4 mg/dL not estab. Not Available [facility] [address] [place] [address], [id number], 05/23/2024 11:38:05 05/19/20 24 05/23/2024 elect ropho resis panel , urine albumin, ur. 75.2 % Not Available [facility] [address] [place] [address], [id number], 05/23/2024 11:38:05 05/19/20 24 05/23/2024 elect ropho resis panel , urine alpha globulin 1, ur 1.7 % Not Available [facility] [address] [place] [address], [id number], 05/23/2024 11:38:05 05/19/20 24 05/23/2024 elect ropho resis panel , urine alpha globulin 2, ur 3.8 % Not Available [facility] [address] [place] [address], [id number], 05/23/2024 11:38:05 05/19/20 24 05/23/2024 elect ropho resis panel , urine beta globulin, ur 9.3 % Not Available [facility] [address] [place] [address], [id number], 05/23/2024 11:38:05 05/19/20 24 05/23/2024 elect ropho resis panel , urine gamma globulin, ur 10.0 % Not Available [facility] [address] [place] [address], [id number], 05/23/2024 11:38:05 05/19/20 24 05/23/2024 elect ropho resis panel , urine M spike %, ur NOT OBSERV ED % Not Available [facility] [address] [place] [address], [id number], 05/23/2024 11:38:05 05/19/20 24 05/23/2024 elect ropho resis panel , urine interpretati on; ur elect Prote in elect ropho resis scan will follo w via compu ter, mail, or couri er gokul kohli. Not Available [facility] [address] [place] [address], [id number], 05/23/2024 11:38:05 05/19/20 24 05/23/2024 JOSE ROBERTO (anti nucle ar antib odies ) scree n, serum JOSE ROBERTO screen NEGATI VE negati ve Perfo rmed by Bio-R ad enzym e immun oassa y Not Available [facility] [address] [place] [address], [id number], 05/23/2024 15:27:57 06/11/20 24 06/11/2024 CBC CBC Not Available [facility] [address] [place] [address], [id number], 06/11/2024 18:15:01 06/11/20 24 06/11/2024 CBC WBC 8.5 K/uL 4.8- 10.8 Not Available [facility] [address] [place] [address], [id number], 06/11/2024 18:15:01 06/11/20 24 06/11/2024 CBC RBC 5.18 M/uL 4.70-6 .10 Not Available [facility] [address] [place] [address], [id number], 06/11/2024 18:15:01 06/11/2006/11/2024 CBC HGB 14.8 g/dL 14.0-1 8.0 Not Available [facility] [address] [place] [address], 51525, 06/11/2024 18:15:01 06/11/2006/11/2024 CBC HCT 45.6 % 42.0-5 2.0 Not Available [facility] [address] [place] [address], 54423, 06/11/2024 18:15:01 06/11/2006/11/2024 CBC MCV 88.0 fL 80.0-9 4.0 Not Available [facility] [address] [place] [address], [id number], 06/11/2024 18:15:01 06/11/2006/11/2024 CBC MCH 28.6 pg 27.0- 31.0 Not Available [facility] [address] [place] [address], [id number], 06/11/2024 18:15:01 06/11/2006/11/2024 CBC MCHC 32.5 g/dL 32.0-3 6.0 Not Available [facility] [address] [place] [address], 77583, 06/11/2024 18:15:01 06/11/2006/11/2024 CBC RDW-SD 44.5 fL 35.1 - 46.3 Not Available [facility] [address] [place] [address], 85231, 06/11/2024 18:15:01 06/11/2006/11/2024 CBC plt 222 K/uL 130-40 0 Not Available [facility] [address] [place] [address], [id number], 06/11/2024 18:15:01 06/11/20 24 06/11/2024 CBC MPV 12.9 fL 7.5- 11.8 high Not Available [facility] [address] [place] [address], [id number], 06/11/2024 18:15:01 06/11/20 24 06/11/2024 renal funct ion panel , serum renal function panel Not Available [facility] [address] [place] [address], [id number], 06/11/2024 18:28:00 06/11/20 24 06/11/2024 renal funct ion panel , serum sodium 138 mmol/ L 136-14 6 Not Available [facility] [address] [place] [address], [id number], 06/11/2024 18:28:00 06/11/20 24 06/11/2024 renal funct ion panel , serum potassium 5.0 mmol/ L 3.5-5. 1 Not Available [facility] [address] [place] [address], 36587, 06/11/2024 18:28:00 06/11/20 24 06/11/2024 renal funct ion panel , serum chloride 104 mmol/ L 98-110 Not Available [facility] [address] [place] [address], 10431, 06/11/2024 18:28:00 06/11/20 24 06/11/2024 renal funct ion panel , serum CO2 25 mEq/L 20-32 Not Available [facility] [address] [place] [address], 17663, 06/11/2024 18:28:00 06/11/20 24 06/11/2024 renal funct ion panel , serum anion gap 14 mmol/ L 10-22 Not Available [facility] [address] [place] [address], 73240, 06/11/2024 18:28:00 06/11/20 24 06/11/2024 renal funct ion panel , serum glucose 104 mg/dL 70-100 high Not Available [facility] [address] [place] [address], 41857, 06/11/2024 18:28:00 06/11/20 24 06/11/2024 renal funct ion panel , serum calcium 9.4 mg/dL 8.4-10 .4 Not Available [facility] [address] [place] [address], 42681, 06/11/2024 18:28:00 06/11/2006/11/2024 renal funct ion panel , serum albumin 4.0 g/dL 3.5-5. 3 Not Available [facility] [address] [place] [address], 09029, 06/11/2024 18:28:00 06/11/20 24 06/11/2024 renal funct ion panel , serum phosphorus 4.3 mg/dL 2.7-4. 5 Not Available [facility] [address] [place] [address], 96991, 06/11/2024 18:28:00 06/11/20 24 06/11/2024 renal funct ion panel , serum BUN 52 mg/dL 7-21 high Not Available [facility] [address] [place] [address], 35172, 06/11/2024 18:28:00 06/11/20 24 06/11/2024 renal funct ion panel , serum creatinine 2.5 mg/dL 0.7-1. 3 high Not Available [facility] [address] [place] [address], 44803, 06/11/2024 18:28:00 06/11/20 24 06/11/2024 renal funct ion panel , serum GFR(non-afri can georgian) 29 Not Available [facility] [address] [place] [address], [id number], 06/11/2024 18:28:00 06/11/2006/11/2024 renal funct ion panel , serum GFR() 35 ([employer] GHAZAL KIDNE Y DISEA SE HAS A GFR LESS THAN 60 ML/VA N/1.7 3 MM FOR A PERIO D OF THREE MONTH S OR MORE. ) Not Available [facility] [address] [place] [address], [id number], 06/11/2024 18:28:00 06/11/20 24 06/12/2024 micro album in, urine microalbumin ,random panel Not Available [facility] [address] [place] [address], [id number], 06/12/2024 09:14:49 06/11/2006/12/2024 micro album in, urine microalbumin random 188.1 mg/dL Not Available [facility] [address] [place] [address], 62048, 06/12/2024 09:14:49 06/11/2006/12/2024 micro album in, urine creatinine, urine random 82 mg/dL Refer ence range not estab lishe d for other than 24 hour colle ction . Not Available [facility] [address] [place] [address], 91707, 06/12/2024 09:14:49 06/11/20 24 06/12/2024 micro album in, urine microalb/cre at ratio 2294 ug/mg (Micr oalbu min/C reati nine Ratio : Narda l: <30 UG/MG Creat Micro album inuri a: 30-30 0 UG/MG Creat Clini jennie Album inuri a: >300 UG/MG Creat The class ifica tion of a patie nt's prote inuri a shoul d be based upon at least 2 or 3 abnor mal resul ts colle cted withi n a 3 to 6 month time frame . *No narda l range s have been estab lishe d for jimmie Aguilar album in or Creat inine .) Not Available [facility] [address] [place] [address], [id number], 06/12/2024 09:14:49 06/11/20 24 06/12/2024 BMP, serum or plasm a basic met. panel Not Available [facility] [address] [place] [address], [id number], 06/12/2024 18:00:39 06/11/20 24 06/12/2024 BMP, serum or plasm a glucose 105 mg/dL 70-100 high Not Available [facility] [address] [place] [address], 19821, 06/12/2024 18:00:39 06/11/20 24 06/12/2024 BMP, serum or plasm a sodium 137 mmol/ L 136-14 6 Not Available [facility] [address] [place] [address], 10693, 06/12/2024 18:00:39 06/11/20 24 06/12/2024 BMP, serum or plasm a potassium 5.0 mmol/ L 3.5-5. 1 Not Available [facility] [address] [place] [address], 65752, 06/12/2024 18:00:39 06/11/20 24 06/12/2024 BMP, serum or plasm a chloride 106 mmol/ L 98-110 Not Available [facility] [address] [place] [address], 62688, 06/12/2024 18:00:39 06/11/20 24 06/12/2024 BMP, serum or plasm a CO2 24 mEq/L 20-32 Not Available [facility] [address] [place] [address], [id number], 06/12/2024 18:00:39 06/11/20 24 06/12/2024 BMP, serum or plasm a anion gap 12 mmol/ L 10-22 Not Available [facility] [address] [place] [address], 09033, 06/12/2024 18:00:39 06/11/20 24 06/12/2024 BMP, serum or plasm a calcium 9.5 mg/dL 8.4-10 .4 Not Available [facility] [address] [place] [address], 22720, 06/12/2024 18:00:39 06/11/20 24 06/12/2024 BMP, serum or plasm a BUN 53 mg/dL 7-21 high Not Available [facility] [address] [place] [address], 33200, 06/12/2024 18:00:39 06/11/20 24 06/12/2024 BMP, serum or plasm a creatinine 2.4 mg/dL 0.7-1. 3 high Not Available [facility] [address] [place] [address], 81405, 06/12/2024 18:00:39 06/11/20 24 06/12/2024 BMP, serum or plasm a GFR(non-afri can georgian) 30 Not Available [facility] [address] [place] [address], 04435, 06/12/2024 18:00:39 06/11/20 24 06/12/2024 BMP, serum or plasm a GFR() 36 ([employer] GHAZAL KIDNE Y DISEA SE HAS A GFR LESS THAN 60 ML/VA N/1.7 3 MM FOR A PERIO D OF THREE MONTH S OR MORE. ) Not Available [facility] [address] [place] [address], 08383, 06/12/2024 18:00:39 06/27/20 24 06/27/2024 renal funct ion panel , serum renal function panel Not Available [facility] [address] [place] [address], 88874, 06/27/2024 19:09:42 06/27/20 24 06/27/2024 renal funct ion panel , serum sodium 140 mmol/ L 136-14 6 Not Available [facility] [address] [place] [address], 72623, 06/27/2024 19:09:42 06/27/20 24 06/27/2024 renal funct ion panel , serum potassium 4.1 mmol/ L 3.5-5. 1 Not Available [facility] [address] [place] [address], 72652, 06/27/2024 19:09:42 06/27/2006/27/2024 renal funct ion panel , serum chloride 106 mmol/ L 98-110 Not Available [facility] [address] [place] [address], 46088, 06/27/2024 19:09:42 06/27/2006/27/2024 renal funct ion panel , serum CO2 28 mEq/L 20-32 Not Available [facility] [address] [place] [address], 37515, 06/27/2024 19:09:42 06/27/20 24 06/27/2024 renal funct ion panel , serum anion gap 10 mmol/ L 10-22 Not Available [facility] [address] [place] [address], 53280, 06/27/2024 19:09:42 06/27/20 24 06/27/2024 renal funct ion panel , serum glucose 142 mg/dL 70-100 high Not Available [facility] [address] [place] [address], 72333, 06/27/2024 19:09:42 06/27/2006/27/2024 renal funct ion panel , serum calcium 9.1 mg/dL 8.4-10 .4 Not Available [facility] [address] [place] [address], 90065, 06/27/2024 19:09:42 06/27/20 24 06/27/2024 renal funct ion panel , serum albumin 3.8 g/dL 3.5-5. 3 Not Available [facility] [address] [place] [address], 44496, 06/27/2024 19:09:42 06/27/20 24 06/27/2024 renal funct ion panel , serum phosphorus 4.6 mg/dL 2.7-4. 5 high Not Available [facility] [address] [place] [address], 18477, 06/27/2024 19:09:42 06/27/20 24 06/27/2024 renal funct ion panel , serum BUN 38 mg/dL 7-21 high Not Available [facility] [address] [place] [address], 79232, 06/27/2024 19:09:42 06/27/20 24 06/27/2024 renal funct ion panel , serum creatinine 2.3 mg/dL 0.7-1. 3 high Not Available [facility] [address] [place] [address], 35564, 06/27/2024 19:09:42 06/27/20 24 06/27/2024 renal funct ion panel , serum GFR(non-afri can georgian) 31 Not Available [facility] [address] [place] [address], 62457, 06/27/2024 19:09:42 06/27/20 24 06/27/2024 renal funct ion panel , serum GFR() 38 ([employer] GHAZAL KIDNE Y DISEA SE HAS A GFR LESS THAN 60 ML/VA N/1.7 3 MM FOR A PERIO D OF THREE MONTH S OR MORE. ) Not Available [facility] [address] [place] [address], 37511, 06/27/2024 19:09:42 07/09/20 24 07/09/2024 CBC CBC Not Available [facility] [address] [place] [address], [id number], 07/09/2024 18:19:54 07/09/20 24 07/09/2024 CBC WBC 10.2 K/uL 4.8- 10.8 Not Available [facility] [address] [place] [address], 10579, 07/09/2024 18:19:54 07/09/20 24 07/09/2024 CBC RBC 4.98 M/uL 4.70-6 .10 Not Available [facility] [address] [place] [address], 64316, 07/09/2024 18:19:54 07/09/20 24 07/09/2024 CBC HGB 14.6 g/dL 14.0-1 8.0 Not Available [facility] [address] [place] [address], 72512, 07/09/2024 18:19:54 07/09/20 24 07/09/2024 CBC HCT 44.1 % 42.0-5 2.0 Not Available [facility] [address] [place] [address], 91877, 07/09/2024 18:19:54 07/09/20 24 07/09/2024 CBC MCV 88.6 fL 80.0-9 4.0 Not Available [facility] [address] [place] [address], 06472, 07/09/2024 18:19:54 07/09/20 24 07/09/2024 CBC MCH 29.3 pg 27.0- 31.0 Not Available [facility] [address] [place] [address], 75483, 07/09/2024 18:19:54 07/09/20 24 07/09/2024 CBC MCHC 33.1 g/dL 32.0-3 6.0 Not Available [facility] [address] [place] [address], [id number], 07/09/2024 18:19:54 07/09/20 24 07/09/2024 CBC RDW-SD 44.9 fL 35.1 - 46.3 Not Available [facility] [address] [place] [address], 48498, 07/09/2024 18:19:54 07/09/20 24 07/09/2024 CBC plt 223 K/uL 130-40 0 Not Available [facility] [address] [place] [address], 87613, 07/09/2024 18:19:54 07/09/20 24 07/09/2024 CBC MPV 13.0 fL 7.5- 11.8 high Not Available [facility] [address] [place] [address], 12872, 07/09/2024 18:19:54 07/09/20 24 07/09/2024 renal funct ion panel , serum renal function panel Not Available [facility] [address] [place] [address], 09698, 07/09/2024 18:33:49 07/09/20 24 07/09/2024 renal funct ion panel , serum sodium 139 mmol/ L 136-14 6 Not Available [facility] [address] [place] [address], 60012, 07/09/2024 18:33:49 07/09/20 24 07/09/2024 renal funct ion panel , serum potassium 4.6 mmol/ L 3.5-5. 1 Not Available [facility] [address] [place] [address], 30441, 07/09/2024 18:33:49 07/09/20 24 07/09/2024 renal funct ion panel , serum chloride 105 mmol/ L 98-110 Not Available [facility] [address] [place] [address], 22543, 07/09/2024 18:33:49 07/09/20 24 07/09/2024 renal funct ion panel , serum CO2 24 mEq/L 20-32 Not Available [facility] [address] [place] [address], 11076, 07/09/2024 18:33:49 07/09/20 24 07/09/2024 renal funct ion panel , serum anion gap 15 mmol/ L 10-22 Not Available [facility] [address] [place] [address], 16124, 07/09/2024 18:33:49 07/09/20 24 07/09/2024 renal funct ion panel , serum glucose 198 mg/dL 70-100 high Not Available [facility] [address] [place] [address], 65286, 07/09/2024 18:33:49 07/09/20 24 07/09/2024 renal funct ion panel , serum calcium 8.9 mg/dL 8.4-10 .4 Not Available [facility] [address] [place] [address], 27159, 07/09/2024 18:33:49 07/09/20 24 07/09/2024 renal funct ion panel , serum albumin 4.0 g/dL 3.5-5. 3 Not Available [facility] [address] [place] [address], 50378, 07/09/2024 18:33:49 07/09/20 24 07/09/2024 renal funct ion panel , serum phosphorus 3.2 mg/dL 2.7-4. 5 Not Available [facility] [address] [place] [address], 82967, 07/09/2024 18:33:49 07/09/20 24 07/09/2024 renal funct ion panel , serum BUN 48 mg/dL 7-21 high Not Available [facility] [address] [place] [address], 98253, 07/09/2024 18:33:49 07/09/20 24 07/09/2024 renal funct ion panel , serum creatinine 2.1 mg/dL 0.7-1. 3 high Not Available [facility] [address] [place] [address], 91898, 07/09/2024 18:33:49 07/09/20 24 07/09/2024 renal funct ion panel , serum GFR(non-afri can georgian) 35 Not Available [facility] [address] [place] [address], [id number], 07/09/2024 18:33:49 07/09/20 24 07/09/2024 renal funct ion panel , serum GFR() 42 ([employer] GHAZAL KIDNE Y DISEA SE HAS A GFR LESS THAN 60 ML/VA N/1.7 3 MM FOR A PERIO D OF THREE MONTH S OR MORE. ) Not Available [facility] [address] [place] [address], [id number], 07/09/2024 18:33:49 07/09/20 24 07/09/2024 PTH (para thyro id hormo ne), intac t, serum or plasm a PTH-intact high Not Available [facility] [address] [place] [address], 50682, 07/09/2024 19:53:45 07/09/20 24 07/09/2024 PTH (para thyro id hormo ne), intac t, serum or plasm a PTH-intact 209 pg/mL 12-88 high Not Available [facility] [address] [place] [address], [id number], 07/09/2024 19:53:45 07/09/20 24 07/09/2024 PTH (para thyro id hormo ne), intac t, serum or plasm a calcium 8.9 mg/dL 8.4-10 .4 Not Available [facility] [address] [place] [address], [id number], 07/09/2024 19:53:45 07/09/20 24 07/10/2024 micro album in, urine microalbumin ,random panel Not Available [facility] [address] [place] [address], 51291, 07/10/2024 10:28:46 07/09/20 24 07/10/2024 micro album in, urine microalbumin random 214.2 mg/dL Not Available [facility] [address] [place] [address], 38102, 07/10/2024 10:28:46 07/09/20 24 07/10/2024 micro album in, urine creatinine, urine random 70 mg/dL Refer ence range not estab lishe d for other than 24 hour colle ction . Not Available [facility] [address] [place] [address], 42126, 07/10/2024 10:28:46 07/09/20 24 07/10/2024 micro album in, urine microalb/cre at ratio 3060 ug/mg (Micr oalbu min/C reati nine Ratio : Narda l: <30 UG/MG Creat Micro album inuri a: 30-30 0 UG/MG Creat Clini jennie Album inuri a: >300 UG/MG Creat The class ifica tion of a patie nt's prote inuri a shoul d be based upon at least 2 or 3 abnor mal resul ts colle cted withi n a 3 to 6 month time frame . *No narda l range s have been estab lishe d for rando m Micro album in or Creat inine .) Not Available [facility] [address] [place] [address], [id number], 07/10/2024 10:28:46 07/09/20 24 07/09/2024 BNP (B-ty pe natri ureti c pepti de), serum or plasm a BNP 118.4 pg/mL <2.0-1 00 high Not Available [facility] [address] [place] [address], [id number], 07/09/2024 19:54:02 07/02/20 24 07/02/2024 regad enoso n efes s test (PROC ) No observ ation record ed. [email or web address] Not Available 2023 22:19:10 Result Notes None recorded. Problems Name Problem SNOMED Code Status Onset Date Resolution Date Notes Provider Name and Address Organization Details Recorded Time Chronic kidney disease stage 3 816671353 Active 2023 Sandrine Infante APRN, THREAD GRINDER [address] [place] [address], [phone] , [facility] 4 11:45:53 Essential hypertension 11878504 Active 2023 Sandrine Infante APRN, THREAD GRINDER [address] [place] [address], [phone] , [facility] 4 11:45:59 Hyperkalemia 38363494 Active 2023 Sandrine Infante APRN, THREAD GRINDER [address] [place] [address], [phone] , [facility] 4 11:46:41 Type 2 diabetes mellitus 98164433 Active 2023 Sandrine Infante APRN, THREAD GRINDER [address] [place] [address], [phone] , [facility] 4 11:55:08 Chronic kidney disease stage 4 235172707 Active 2024 Sandrine Infante APRN, THREAD GRINDER [address] [place] [address], [phone] , [facility] 5 16:21:23 Serum creatinine above reference range 503309382 [facility]23 [facility] 4 09:36:59 Vitamin D deficiency 62305044 Active 2023 [facility] 4 14:50:50 Problem Notes None recorded. Procedures Surgical History None recorded. Imaging Results Imaging Date Name Status [email or web address] Details LastModified Time 07/02/2024 regadenoson stress test (PROC) completed [email or web address] Information not available 08/06/2024 22:19:10 Procedure Notes None recorded. Medical Equipment None Reported. Medications Name Sig Start Date Stop Date Status Note LastModified by Organization Details LastModified Time furosemide 40 mg tablet 1.5 tablet daily x 15 days 05/19 completed Not Available Not Available Not Available potassium chloride ER 10 mEq capsule,ext ended release TAKE 1 CAPSULE BY MOUTH ONCE DAILY 06/11 completed Not Available Not Available Not Available clonidine HCl 0.1 mg tablet TAKE 1 TABLET BY MOUTH TWICE DAILY 05/30 completed Not Available Not Available Not Available torsemide 20 mg tablet 05/19 completed Not Available Not Available Not Available azithromyci n 250 mg tablet TAKE 2 TABLETS BY MOUTH ON DAY 1, AND THEN TAKE 1 TABLET BY MOUTH ONCE A DAY ON DAY 2 THROUGH DAY 5 12/10 completed Not Available Not Available Not Available metoprolol succinate ER 50 mg tablet,exte nded release 24 hr TAKE 1 TABLET BY MOUTH ONCE DAILY active Not Available Not Available No t Available lisinopril 20 mg tablet TAKE 1 TABLET BY MOUTH ONCE DAILY 05/19 completed Not Available Not Available Not Available prednisone 20 mg tablet TAKE 2 TABLETS BY MOUTH ONCE DAILY WITH FOOD AT THE SAME TIME EACH DAY 12/10 completed Not Available Not Available Not Available midodrine 5 mg tablet one tablet bid 07/16 completed Not Available Not Available Not Available nifedipine ER 30 mg tablet,exte nded release Take 1 tablet twice a day by oral route. 2023 active Not Available Not Available Not Avai lable nifedipine ER 60 mg tablet,exte nded release 24 hr TAKE 1 TABLET BY MOUTH ONCE DAILY active Not Available Not Available No t Available furosemide 80 mg tablet TAKE 1 TABLET BY MOUTH ONCE DAILY 07/16 completed Not Available Not Available Not Available Lasix 20 mg tablet Take 1 tablet every day by oral route. active Not Available Not Available No t Available lisinopril 10 mg tablet TAKE 1 TABLET BY MOUTH ONCE DAILY 06/12 completed Not Available Not Available Not Available lisinopril 5 mg tablet 06/11 completed Not Available Not Available Not Available metoprolol succinate ER 25 mg tablet,exte nded release 24 hr TAKE 1 TABLET BY MOUTH ONCE DAILY 07/16 completed Not Available Not Available Not Available ergocalcife rol (vitamin D2) 1,250 mcg (50,000 unit) capsule 1 capsules monthly 2024 active Not Available Not Available Not Avai lable albuterol sulfate HFA 90 mcg/actuati on aerosol inhaler INHALE 1 TO 2 PUFFS BY MOUTH EVERY 4 HOURS NEEDED - RINSE MOUTH AFTER USE active Not Available Not Available No t Available nifedipine ER 60 mg tablet,exte nded release Take 1 tablet twice a day by oral route. 2024 active Not Available Not Available Not Avai lable ondansetron 4 mg disintegrat ing tablet DISSOLVE 1 TABLET IN MOUTH EVERY 8 HOURS NEEDED FOR NAUSEA 05/19 completed Not Available Not Available Not Available rosuvastati n 20 mg tablet TAKE 1 TABLET BY MOUTH ONCE DAILY AT BEDTIME active Not Available Not Available No t Available Contour Next Test Strips USE 1 STRIP TO CHECK GLUCOSE 4 TIMES DAILY active Not Available Not Available No t Available Jardiance 10 mg tablet TAKE 1 TABLET BY MOUTH ONCE DAILY 05/19 completed Not Available Not Available Not Available Jardiance 25 mg tablet TAKE 1 TABLET BY MOUTH ONCE DAILY active Not Available Not Available No t Available Trulicity 0.75 mg/0.5 mL subcutaneou s pen injector INJECT 1 SYRINGEFU L SUBCUTANE OUSLY EVERY WEEK active Not Available Not Available No t Available Veltassa 8.4 gram oral powder packet 06/12 completed Not Available Not Available Not Available Ozempic 1 mg/dose (4 mg/3 mL) subcutaneou s pen injector 05/19 completed Not Available Not Available Not Available Ozempic 2 mg/dose (8 mg/3 mL) subcutaneou s pen injector INJECT 2MG SUBCUTABE OUSLY ONCE A WEEK 05/19 completed Not Available Not Available Not Available Ozempic 0.25 mg or 0.5 mg (2 mg/3 mL) subcutaneou s pen injector INJECT 0.25 MG SUBCUTANE OUSLY ONCE A WEEK FOR 4 WEEKS, THEN 0.5 MG SUBCUTANE OUSLY FOR 4 WEEKS, THEN 1 MG SUBCUTANE OUSLY FOR 4 WEEKS, THEN START MAINTENAN CE DOSE. 05/19 completed Not Available Not Available Not Available Vitals Date Recorded Body weight Heart rate Oxygen saturation Oxygen saturation in Arterial blood by Pulse oximetry Systolic blood pressure Diastolic blood pressure Provider Name and Address Organization Details Last Updated DateTime 4 293677. 02 g 77 /min 98 % 98 % 122 mm[Hg] 56 mm[Hg] [facility] 4 16:39:39 Date Recorded Body weight Heart rate Oxygen saturation Oxygen saturation in Arterial blood by Pulse oximetry Systolic blood pressure Diastolic blood pressure Provider Name and Address Organization Details Last Updated DateTime 4 330646. 61 g 80 /min 100 % 100 % 124 mm[Hg] 82 mm[Hg] [facility] 4 14:38:46 Date Recorded Body weight Heart rate Oxygen saturation Oxygen saturation in Arterial blood by Pulse oximetry Systolic blood pressure Diastolic blood pressure Provider Name and Address Organization Details Last Updated DateTime 4 945506. 54 g 77 /min 97 % 97 % 158 mm[Hg] 80 mm[Hg] [facility] 4 11:27:34 Date Recorded Body weight Heart rate Oxygen saturation Oxygen saturation in Arterial blood by Pulse oximetry Systolic blood pressure Diastolic blood pressure Provider Name and Address Organization Details Last Updated DateTime 4 294243. 65 g 76 /min 98 % 98 % 166 mm[Hg] 80 mm[Hg] [facility] 4 14:40:57 Date Recorded Body weight Heart rate Oxygen saturation Oxygen saturation in Arterial blood by Pulse oximetry Systolic blood pressure Diastolic blood pressure Provider Name and Address Organization Details Last Updated DateTime 5 005094. 98 g 85 /min 95 % 95 % 144 mm[Hg] 74 mm[Hg] [facility] 5 15:44:05 Social History None recorded. Functional Status None recorded. Mental Status None recorded. Family History Nothing Reported. Medical History No medical history recorded. Past Encounters Encounter ID Performer Location Encounter Start Date Encounter Closed Date Diagnosis/Indication Diagnosis SNOMED-CT Code Diagnosis ICD10 Code Diagnosis Note [id number] Derick Carroll MD [facility] ([place] [address] [place] [address] 05/19/2024 15:52:32 05/19/2024 17:35:19 Serum creatinine above reference range 215819688 R79.89 [id number] MD [facility] ([place] [place] [address] 06/11/2024 14:31:56 06/11/2024 16:30:43 Serum creatinine above reference range 770352593 R79.89 Vitamin D deficiency 347 62946 E55.9 [id number] MD [facility] ([place] [place] [address] 07/16/2024 11:16:11 07/16/2024 15:48:51 Vitamin D deficiency 50679358 E55.9 Chronic ki dney disease stage 3 640764574 N18.30 Essential hypertension 70206085 I10 Type 2 troy betes mellitus 50074847 E11.21 Hyperkalemia 79798634 E8 7.5 [id number] MD [facility] [place] [address] 09/10/2024 14:29:28 09/10/2024 16:06:07 Vitamin D deficiency 85934818 E55.9 Chronic ki dney disease stage 3 160699739 N18.30 Essential hypertension 60062420 I10 Type 2 troy betes mellitus 75465562 E11.21 Hyperkalemia 02830869 E8 7.5 [id number] MD [facility] ([place] [place] [address] 12/10/2024 15:34:50 12/10/2024 16:16:47 Vitamin D deficiency 33832079 E55.9 Essential hypertension 46679980 I10 Type 2 troy betes mellitus 98916907 E11.21 Hyperkalemia 44667066 E8 7.5 Chronic ki dney disease stage 4 665371956 N18.4 Health Concerns Section Related Observation LastModified by Organization Detai ls LastModified Time None Recorded Concern Status LastModified by Organization Details LastModified Time None Recorded Advance Directives Directive None Recorded Payers Encounter Date Sequence Insurance Name Policy Number Policy Rivas Covered Member ID Rivas Member ID Guarantor Name 05/19/2024 1 [employer] - CHOICE (POS II) [id number] 06 Stormy Wright Prajapati [id number] Blaynekatlynservando Prajapati 06/11/2024 1 [employer] - CHOICE (POS II) [id number] 06 Stormy Wright Alo [id number] Sean Salcido Alo 07/16/2024 1 [employer] - CHOICE (POS II) [id number] 06 Stormy Wright Alo [id number] Sean Prajapati 09/10/2024 OPHTHALMOLOGY COPAY PROGRAM Sean Prajapati [id number] Sean Prajapati 12/10/2024 1 [employer] - CHOICE (POS II) [id number] 06 Stormy Wright Alo [id number] Sean Prajapati Notes Date Note Type Note Provider Name and Address Organization Details Recorded Time 05/19/2024 text/html 54-year-old geoff ied gentleman from [place], close to [place], with a history of hypertension, diabetes since 2000 with neuropathy and retinopathy presents with kidney disease. He has been having some lightheaded symptoms for a long period of time. He had his lasix increased lasix week, from 40 to 60 mg daily. He was gainining weight recently, after coming off of Ozempic, and feels like he may be gaining weight. He was on variable dose of Lasix and last week he had it increase up to from 80 up to 120 mg daily. He was on Torsemide for two days, and came back off of that for unknown reason. He was placed on Torsemide 40 mg daily at that point for having some volume overload. Patient has long standing diabetes with no retinopathy, and no neuropathy. Acid reflux, discussed the risks of using proton pump inhibitors including a 30 percent high-risk of having kidney failure which occurs via a allergic reaction. Patient denies use of any NSAIDs such as ibuprofen, naproxen or Aleve and is only using Tylenol. Patient was advised that NSAIDs can be toxic for kidneys, and voiced a good understanding. No urinary complaints appreciated. No nocturia, or incontinence have been appreciated. 12 point review system was otherwise unremarkable Derick Carroll MD [address] [place], [address], [facility] 05/20/2024 12:33:13 06/11/2024 text/html 1. He reports hi s orthostatic hypotension is mildly better on the midodrine but has not resolved. He states he finds it very difficult to cut his midodrine in half to obtain the 2 point milligram dose. 2. Patient states his diabetes is overall very well-controlled currently. He denies hypoglycemic events. 3. He denies urinary complaint such as dysuria, urgency, or frequency. 4. He states he is finding it quite difficult with multiple riders to keep track of medications and is very worried about his kidney function worsening. He would like to discuss with myself any medication changes before doing them. Sandrine Infante APRN, THREAD GRINDER [address] [place] [address], [phone], [facility] 06/11/2024 16:22:13 07/16/2024 text/html 1. He reports th at he is no longer having any dizziness or lightheadedness. He has been out of midodrine for several days. Blood pressure is elevated in the office today. He states his primary care just increased his metoprolol but he has not been able to pick it up yet. He is picking it up today. Additionally, he has been out of his furosemide for 3 days. He reports his edema is completely resolved. 2. Patient states his diabetes is overall very well-controlled currently and blood sugar tos836 this morning. He denies hypoglycemic events. 3. He denies urinary complaint such as dysuria, urgency, or frequency. Sandrine Infante APRN, THREAD GRINDER [address] [place] [address], [phone], [facility] 07/16/2024 11:55:31 09/10/2024 text/html 1. He reports hi s blood pressure has been continuing to be quite elevated despite adding nifedipine recently. He states he is no longer having any lower extremity edema. He denies lightheadedness or dizziness. 2. He states his blood sugars had been very well-controlled until recently due being out of his Trulicity due to insurance issue. He is hopeful to get it restarted later this week. 3. He denies urinary complaint such as dysuria, urgency, or frequency. Sandrine Infante APRN, THREAD GRINDER [address] [place] [address], [phone], [facility] 09/10/2024 15:02:15 12/10/2024 text/html 1. He reports hi s blood pressure has been elevated, he is on Flomax oh IFT. He denies lightheadedness or dizziness. Prior to his send he states he was put back on furosemide 20 mg daily approximately a month and a half ago with some right lower extremity swelling. He states his right leg is always bigger than his left. He states he is currently undergoing evaluation for a possible DVT in his right leg. 2. He states he Juwan regarding his diabetic management. He has not been checking his blood sugars but plans to start. He has continued to be compliant with his diabetic meds. 3. He denies urinary complaint such as dysuria, urgency, or frequency. He denies frequent nighttime urination. Sandrine Inafnte APRN, THREAD GRINDER [address] [place] [address], [phone], [facility] 12/10/2024 16:05:00
--- OUTSIDE RECORDS SUMMARY | 2024-12-26 18:54 | XMS_ITS | Referral Summary ---
Author Organization [facility] [place] Address [address] [place] [address] Care Team Providers Care Thoracic Medicine Physician Name Role Phone No, Physician Primary Care Provider [phone] Allergies No known active allergies Medications levoFLOXacin (LEVAQUIN) 500 mg tablet Take 1 tablet (500 mg total) by mouth daily. 10 tablet 12/09/2017 Active HYDROcodone-kemar taminophen (NORCO) 5-325 mg per tabletIndicatio ns:Pain Take 1-2 tablets by mouth every 4 (four) hours as needed for pain. Do not exceed 8 tablets/day. 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 Gender Identity Not on file Sexual Orientation Not on file Last Filed Vital Signs Vital Sign Reading Time Taken Comments Blood Pressure 143/87 12/09/2017 3:15 PM FOUR SLIDE MACHINE OPERATOR Pulse 84 12/09/2017 3:15 PM FOUR SLIDE MACHINE OPERATOR Temperature 36.8 C (98.3 F) 12/09/2017 11:37 AM FOUR SLIDE MACHINE OPERATOR Respiratory Rate 14 12/09/2017 3:15 PM FOUR SLIDE MACHINE OPERATOR Oxygen Saturation 97% 12/09/2017 3:15 PM FOUR SLIDE MACHINE OPERATOR Inhaled Oxygen Concentration - - Weight 120.2 kg (265 lb) 12/09/2017 11:37 AM FOUR SLIDE MACHINE OPERATOR Height 175.3 cm (5' 9 ) 12/09/2017 11:37 AM FOUR SLIDE MACHINE OPERATOR Body Mass Index 39.13 12/09/2017 11:37 AM FOUR SLIDE MACHINE OPERATOR Plan of Treatment Not on file Care Teams Thoracic Medicine Physician Relationship Specialty Start Date End Date No, Physician PCP - General 10/13/17
--- OUTSIDE RECORDS SUMMARY | 2024-12-26 18:54 | XMS_ITS | Clinical Summary ---
Author Organization [facility] Address [facility] [place] [address] Care Team Providers Care Crystal Cutter Name Role Phone Michelle Apodaca MD Unavailable [phone] Alyssa Longo MD Primary Care Provider [phone] Derick Carroll MD Unavailable [phone] Allergies No known active allergies Medications Exenatide ER (BYDUREON BCISE) 2 MG/0.85ML Auto-injector Take as directed weekly Active metoprolol succinate ER 25 MG 24 hr tablet Take 1 tablet (25 mg total) by mouth daily. 30 tablet 11 06/28/2020 Active furosemide (LASIX) 20 MG tablet Take 1 tablet (20 mg total) by mouth daily. Active NIFEdipine ER (ADALAT CC) 30 MG 24 hr tablet Take 1 tablet (30 mg total) by mouth daily. Active Active Problems Problem Noted Date Diagnosed Date Abnormal ECG 06/19/2024 Mild left ventricular systolic dysfunction 06/19 Shortness of breath 06/19/2024 Hypertension, essential 07/05/2020 Dizziness 07/05/2020 Orthostatic hypotension 07/05/2020 Obesity 07/05/2020 Diabetes mellitus type 2, no ninsulin dependent ([facility]) 07/05/2020 Encounters Date Type Department Care Team Description 10/21/2024 Orders Only [facility] [address] [place] [phone] Michelle Apodaca MD from Last 3 Months Family History Medical History Relation Comments Heart Attack Father Cancer Other Diabetes Other Hypertension Other Heart Attack Paternal Grandfather Relation Status Comments Father Maternal Grandfather Maternal Grandmother Other Paternal Grandfather Paternal Grandmother Social History Tobacco Use Types Packs/Day Years Used Date Smoking Tobacco: Never Smokeless Tobacco: Never Alcohol Use Standard Drinks/Week Comments Not Currently 0 (1 standard drink = 0.6 oz pur e alcohol) AUDIT-C Answer Date Recorded Q1: How often do you have a drink containing alc ohol? 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 on file Not on file Not on file Last Filed Vital Signs Vital Sign Reading Time Taken Comments Blood Pressure 132/70 07/29/2024 2:15 PM CDT Pulse 88 07/29/2024 2:15 PM CDT Temperature - - Respiratory Rate 16 07/29/2024 2:15 PM CDT Oxygen Saturation 94% 07/29/2024 2:15 PM CDT Inhaled Oxygen Concentration - - Weight 110.7 kg (244 lb) 07/29/2024 1:07 PM CDT Height 175.3 cm (5' 9 ) 07/29/2024 1:07 PM CDT Body Mass Index 36.03 07/29/2024 1:07 PM CDT Plan of Treatment Upcoming Encounters Date Type Department Care Team (Late st Contact Info) Description 05/28/2025 10:45 AM CDT [facility] [address] [place] [address] Michelle Apodaca MD [address] [place] [address] Health Maintenance Due Date Last Done Comments Colorectal Cancer Screening Colonoscopy (10 Years) 1968 Kidney Health Evaluation 1968 Annual Physical 01/31/1971 Pneumococcal Vaccine: Pediat rics (0 to 5 Years) and At-Risk Patients (6 to 64 Years) (1 of 2 - PCV) 01/31/1974 Diabetes: Retinopathy Eye Exam 01/31/1986 Hepatitis C 01/31/1986 DTaP, Tdap and Td Vaccines ( 1 - Tdap) 01/31/1987 Hepatitis B Vaccines (1 of 3 - 19+ 3-dose series) 01/31/1987 Zoster Vaccines (1 of 2) 01/31/2018 Hemoglobin A1C 05/22/2020 11/22/2019 Lipid Panel 11/22/2020 11/22/2019 COVID-19 Vaccine (1 - 2023-2 5 season) 2024 Influenza Adult (#1) 2024 Meningococcal B Vaccine Aged Out No l onger eligible based on patient's age to complete this topic Meningococcal Vaccine Aged Out No kristine martin eligible based on patient's age to complete this topic RSV Immunizations Under 20 Months Aged Out No longer eligible based on patient's age to complete this topic Procedures Procedure Name Priority Date/Time Associated Diagnosis Comments LIPID PANEL Routine 11/22/2019 HEMOGLOBIN, GLYCOSYLATED Routine 11/22/2019 from Last 3 Months or Most Recently Relevant to Health Maintenance Results * HEMOGLOBIN, GLYCOSYLATED (11/22/2019) HGB A1C 8.4 % 11/22/2019 Reji Romero MD LABORATORY Final Result * LIPID PANEL (11/22/2019) CHOLESTEROL 90 HDL 40.0 TRIGLYCERIDES 42 CHOL/HDL RATIO 2.3 LDL (CALCULATED) 42 11/22/2019 Reji Romero MD LABORATORY Final Result from Last 3 Months or Most Recently Relevant to Health Maintenance Insurance [employer] [facility] Care Teams Crystal Cutter Relationship Specialty [place] [address] [place] [address] PCP - General FAMILY PRACTICE 05/21/24 Michelle Apodaca MD [address] [place] [id number] [place] Title Inspector CARDIOVASCULAR DISEASE 05/31/20 Derick Carroll MD [address] [place] [address] Consulting Physician INTERNAL MEDICINE 05/30/24
--- OUTSIDE RECORDS SUMMARY | 2024-12-26 18:54 | XMS_ITS | Continuity of Care Document ---
Author Organization [employer] [employer] Address [address] [place] [address] Phone Care Team Providers Care Oil Well Engineer Name Role Phone Reji Romero MD Unavailable Unavailable Allergies, Adverse Reactions, Alerts Substance Reaction Status Criticality No Known Allergies Active No Inform ation Medications Medication Instructions Dosage Effective Dates (start - stop) Status Comments Bydureon BCise 2 mg/0.85 mL subcutaneous auto-injector INJECT (2MG) BY SUBCUTANEOUS ROUTE EVERY 7 DAYS IN THE ABDOMEN, THIGHS, OR OUTER AREA OF UPPER ARM ROTATING INJECTIONSITES(Due for Lab work) - Active glipizide 10 mg tablet take 1 tablet by oral route 2 times every day before a meal 10 MG - Active albuterol sulfate HFA 90 mcg/actuation aerosol inhaler inhale 2 puff by inhalation route every 4 - 6 hours as needed - Active OneTouch Ultra2 kit test blood sugar one time daily - Active OneTouch UltraSoft Lancets test blood sugar one time daily - Active metoprolol succinate ER 25 mg tablet,extended release 24 hr take 1 tablet by oral route every day 25 MG - Active lisinopril 20 mg tablet take 1 tablet by oral route 2 times every day 20 MG - Active Problems Condition Type Effective Dates (start - stop) Clini jennie Status Comments No Known Problems Procedures Procedure Date OFFICE/OUTPATIENT VISIT, EST HC PRO PHONE CALL 5-10 MIN OFFICE/OUTPATIENT VISIT, EST OFFICE/OUTPATIENT VISIT, EST OFFICE/OUTPATIENT VISIT, EST OFFICE/OUTPATIENT VISIT, EST URINALYSIS NONAUTO W/O SCOPE OFFICE/OUTPATIENT VISIT, EST OFFICE/OUTPATIENT VISIT, EST OFFICE/OUTPATIENT VISIT, EST OFFICE/OUTPATIENT VISIT, EST OFFICE/OUTPATIENT VISIT, EST OFFICE/OUTPATIENT VISIT, EST OFFICE/OUTPATIENT VISIT, EST OFFICE/OUTPATIENT VISIT, EST ROUTINE VENIPUNCTURE Advance Directives Directive Yes / No Effective Date File Name No Information Encounters Encounter Description Practice Location Reason(s) For Visit Diagnoses Date Provider Providers Copied on Encounter [facility], [address] [place] [address], [facility], tel:[phone] [facility] No Information 3 Nick Mendoza. [address] [place] [address]. tel:[phone] [facility], [address] [place] [address], tel: [phone] [facility] No Information 1 Nick Mendoza. [address] [place] [address], . tel:[phone] OFFICE/OUTPA TIENT VISIT, EST [facility], [address] [place] [address], [facility], tel: [phone] [facility] Follow-up Labs (chief complaint) Essential (primary) hypertension Type 2 diabetes mellitus w/ diabetic nephropathy 1 Kishor Tovar. [address] [place] [address], . tel:[phone] [facility], [address] [place] [address], tel:[phone] [facility] No Information 1 Nick Mendoza. [address] [place] [address]. tel:[phone] [facility], [address] [place] [address] tel:[phone] [facility] cough (chief complaint) Respiratory infection 0 Kishor Bartlett [address] [place], [place], [facility], [place]. tel:[phone] OFFICE/OUTPA TIENT VISIT, [facility], [address] [place] [address], [facility], tel:[phone] [facility] DIZZINESS.. (chief complaint) DizzinessOrt hostatic hypotension Jan-3 0- 0 Kishor Bartlett [address] [place], [place], [facility], [place]. tel:[phone] OFFICE/OUTPA TIENT VISIT, [facility], [address] [place] [address], [facility], [place] tel:[phone] [facility] DIZZY.. (chief complaint) Type 2 diabetes mellitus w/ diabetic retinopathy w/o macular edemaEssenti al (primary) hypertension Dizziness 0 Kishor Tovar. [address] [place] [address], [facility], [place]. 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 [address] [place] [address], [facility], [place]. tel:[phone] OFFICE/OUTPA TIENT VISIT, [facility], [address] [place] [address], [facility], [place] tel: [phone] [facility] Dizziness (chief complaint)blo od sugar (chief complaint) Hyperglycemi a, unspecifiedD izziness 9 Butts Gulam. [address] [place] [address], [facility], [place]. tel: [phone] OFFICE/OUTPA TIENT VISIT, [facility], [address] [place] [address], [facility], [place] tel: [phone] [facility] BACK PAIN (chief complaint)Lul k pain for 3-4 days (chief complaint) UTIBack pain 9 Kishor Tovar. [address] [place] [address], [facility], [place]. tel:[phone] OFFICE/OUTPA TIENT VISIT, [facility], [address] [place] [address], [facility], tel: [phone] [facility] sore throat.. (chief complaint) Essential (primary) hypertension Acute sinusitisTyp e 2 diabetes mellitus without complication s 9 Kishor Bartlett [address] [place] [address], [facility], [place]. tel:[phone] OFFICE/OUTPA TIENT VISIT, [facility], [address] [place] [address], [facility], tel:[phone] [facility] neck pain. (chief complaint) Cervicalgia 8 Kishor Bartlett [address] [place] [address], [facility], [place]. tel:[phone] OFFICE/OUTPA TIENT VISIT, [facility], [address] [place] [address], [facility], [place] tel: [phone] [facility] Discuss medication (chief complaint) Type 2 diabetes mellitus without complication s 8 Kishor Bartlett [address] [place] [address], [facility], [place]. tel:[phone] [facility], [address] [place] [address], [facility], tel:[phone] [facility] No Information 8 Kishor Bartlett [address] [place] [address], [facility], [place]. tel:[phone] OFFICE/OUTPA TIENT VISIT, [facility], [address] [place] [address], [facility], [place] tel: [phone] [facility] BP/BLOOD SUGAR PROBLEMS (chief complaint)HTN / Hyperglycemia (chief complaint) Essential (primary) hypertension Type 2 diabetes mellitus without complication s 8 Kishor Bartlett [address] [place] [address], [facility], [place]. tel:[phone] OFFICE/OUTPA TIENT VISIT, [facility], [address] [place] [address], [facility], tel:[phone] [facility] SORE THROAT (chief complaint)sor ethroat/post nasal drainage (chief complaint) Acute pharyngitis, unspecifiedT ype 2 diabetes mellitus w/ diabetic nephropathyE ssential (primary) hypertension 7 No Information OFFICE/OUTPA TIENT VISIT, [facility], [address] [place] [address], [facility], tel:[phone] [facility] Headache (chief complaint) Tension headache 5 Lucila Tanisha. [address] [place] [address], [facility], . tel:[phone] [facility], [address] [place] [address], [facility], tel:[phone] [facility] Type 2 diabetes mellitus w/ diabetic nephropathy 0 5 No Information OFFICE/OUTPA TIENT VISIT, [facility], [address] [place] [address], [facility], tel:[phone] [facility] FOLLOW UP (chief complaint) Type 2 diabetes mellitus without complication sEssential (primary) hypertension Rainey's palsy 5 No Information [facility], [address] [place] [address], [facility], tel:[phone] [facility] lab test (chief complaint) Unspecified essential hypertension Diabetes mellitus without mention of complication , type II or unspecified type, not stated as uncontrolled 1-200 9 No Information [facility], [address] [place] [address], [facility], tel:[phone] [facility] Diabetes mellitus without mention of complication , type II or unspecified type, not stated as uncontrolled Unspecified essential hypertension 3-200 9 No Information Family History Family Member Type Diagnosis Age At Onset Mother Problem (finding) Alive and well Father Problem (finding) Alive and well Problem (finding) Family history of hyper tension Problem (finding) Family history of Cance r - Problem (finding) Family history of Diabe lis mellitus Payers Payer name Insurance type Covered republican ID Authoriza tion(s) No Information Social History Type Description Quantity Date Captured Comments Alcohol Use Details Unknown Caffeine Use Details Unknown Tobacco Use Status No Information Smoking Status No Information Sex Male Chief Complaint And Reason For Visit No Information Reason For Referral Reason For Referral No Information Plan Of Treatment Date Type Action Status Goal Colonoscopy. Due on due Goal Eye Exam. Due on due Goal H&P. Due on due Goal CT-Colonography. Due on due Goal FIT. Due on due Goal FIT-DNA. Due on due Goal Hepatitis C scre ening. Due on due Goal Unhealthy drug u se screening. Due on due Goal Sigmoidoscopy. Due on due Goal Depression scree selin. Due on due Goal TD Vaccine. Due on due Goal Hemoglobin A1C. Due on due Goal Urine Microalbumin. Due on due Goal Influenza vaccine. Due on due Goal ECG. Due on due Goal FOBT. Due on due Goal Foot Exam. Due on due Goal Tdap. Due on due Goal Lipid Panel. Due on 026 due Goal Colonoscopy. Due on 021 due Goal ECG. Due on due Goal Urine Microalbumin. Due on M due Goal FOBT. Due on due Goal Tdap. Due on due Goal Sigmoidoscopy. Due on due Goal Lipid Panel. Due on due Goal H&P. Due on due Goal Depression scree selin. Due on due Goal Influenza vaccine. Due on Ma due Goal Eye Exam. Due on due Goal Hemoglobin A1C. Due on due Goal TD Vaccine. Due on 21 due Goal Foot Exam. Due on due Goal Sigmoidoscopy. Due on due Goal Lipid Panel. Due on due Goal Depression scree selin. Due on due Goal H&P. Due on due Goal TD Vaccine. Due on 20 due Goal Foot Exam. Due on 0 due Goal Influenza vaccine. Due on Oc due Goal Colonoscopy. Due on 020 due Goal Eye Exam. Due on due Goal ECG. Due on due Goal Hemoglobin A1C. Due on due Goal Urine Microalbumin. Due on O due Goal FOBT. Due on due Goal Tdap. Due on due Goal Sigmoidoscopy. Due on due Goal Depression scree selin. Due on due Goal Eye Exam. Due on due Goal Colonoscopy. Due on due Goal Influenza vaccine. Due on due Goal TD Vaccine. Due on due Goal Tdap. Due on due Goal Urine Microalbumin. Due on due Goal FOBT. Due on due Goal Lipid Panel. Due on due Goal H&P. Due on due Goal ECG. Due on due Goal Hemoglobin A1C. Due on due Goal Foot Exam. Due on 0 due Goal Colonoscopy. Due on due Goal Eye Exam. Due on due Goal Foot Exam. Due on 0 due Goal Hemoglobin A1C. Due on due Goal ECG. Due on due Goal H&P. Due on due Goal Lipid Panel. Due on due Goal Depression scree selin. Due on due Goal Sigmoidoscopy. Due on due Goal FOBT. Due on due Goal Urine Microalbumin. Due on due Goal Tdap. Due on due Goal TD Vaccine. Due on due Goal Influenza vaccine. Due on due Goal Depression scree selin. Due on due Goal Sigmoidoscopy. Due on due Goal FOBT. Due on due Goal Urine Microalbumin. Due on due Goal Tdap. Due on due Goal TD Vaccine. Due on 19 due Goal Influenza vaccine. Due on due Goal Colonoscopy. Due on 019 due Goal Eye Exam. Due on due Goal Foot Exam. Due on 9 due Goal Hemoglobin A1C. Due on due Goal ECG. Due on due Goal H&P. Due on due Goal Lipid Panel. Due on 014 due Goal H&P. Due on due Goal Eye Exam. Due on due Goal Foot Exam. Due on 9 due Goal Hemoglobin A1C. Due on due Goal ECG. Due on due Goal Depression scree selin. Due on due Goal Lipid Panel. Due on 014 due Goal Sigmoidoscopy. Due on due Goal FOBT. Due on due Goal Urine Microalbumin. Due on due Goal Tdap. Due on due Goal TD Vaccine. Due on 19 due Goal Influenza vaccine. Due on due Goal Colonoscopy. Due on due Goal Eye Exam. Due on due Goal Foot Exam. Due on 9 due Goal Hemoglobin A1C. Due on due Goal ECG. Due on due Goal Depression scree selin. Due on due Goal Lipid Panel. Due on due Goal Sigmoidoscopy. Due on due Goal FOBT. Due on due Goal Urine Microalbumin. Due on due Goal Tdap. Due on due Goal TD Vaccine. Due on 19 due Goal Influenza vaccine. Due on due Goal Colonoscopy. Due on due Goal H&P. Due on due Goal FOBT. Due on due Goal Urine Microalbumin. Due on A due Goal Tdap. Due on due Goal TD Vaccine. Due on 19 due Goal Influenza vaccine. Due on due Goal Colonoscopy. Due on 019 due Goal Eye Exam. Due on due Goal Foot Exam. Due on 9 due Goal Hemoglobin A1C. Due on due Goal ECG. Due on due Goal Depression scree selin. Due on due Goal Lipid Panel. Due on due Goal H&P. Due on due Goal Sigmoidoscopy. Due on due Goal Sigmoidoscopy. Due on due Goal FOBT. Due on due Goal H&P. Due on due Goal Lipid Panel. Due on 014 due Goal Depression scree selin. Due on due Goal ECG. Due on due Goal Hemoglobin A1C. Due on due Goal Foot Exam. Due on 8 due Goal Eye Exam. Due on due Goal Colonoscopy. Due on 018 due Goal Influenza vaccine. Due on due Goal TD Vaccine. Due on 18 due Goal Tdap. Due on due Goal Urine Microalbumin. Due on due Goal FOBT. Due on due Goal Urine Microalbumin. Due on due Goal Tdap. Due on due Goal TD Vaccine. Due on 18 due Goal Influenza vaccine. Due on due Goal Colonoscopy. Due on 018 due Goal Eye Exam. Due on due Goal Foot Exam. Due on 8 due Goal Hemoglobin A1C. Due on due Goal ECG. Due on due Goal Depression scree selin. Due on due Goal Lipid Panel. Due on 014 due Goal H&P. Due on due Goal Sigmoidoscopy. Due on due Goal H&P. Due on due Goal Echocardiogram. Due on due Goal ECG. Due on due Goal Tdap. Due on due Goal BMP fasting. Due on due Goal Hemoglobin A1C. Due on due Goal TD Vaccine. Due on 18 due Goal Influenza vaccine. Due on due Goal Eye Exam. Due on due Goal Urinalysis. Due on 09 due Goal Urine Microalbumin. Due on due Goal Foot Exam. Due on 8 due Goal Urinalysis. Due on 09 due Goal TD Vaccine. Due on 17 due Goal Foot Exam. Due on 7 due Goal Urine Microalbumin. Due on due Goal Influenza vaccine. Due on due Goal Hemoglobin A1C. Due on due Goal Eye Exam. Due on due Goal ECG. Due on due Goal Echocardiogram. Due on due Goal BMP fasting. Due on 010 due Goal Tdap. Due on due Goal Depression scree selin. Due on due Goal H&P. Due on due Goal Hemoglobin A1C. Due on due Goal Depression scree selin. Due on due Goal H&P. Due on due Goal Eye Exam. Due on due Goal Urinalysis. Due on due Goal Echocardiogram. Due on due Goal BMP fasting. Due on due Goal TD Vaccine. Due on due Goal Urine Microalbumin. Due on due Goal Tdap. Due on due Goal Foot Exam. Due on due Goal Lipid Panel. Due on due Goal ECG. Due on due Goal H&P. Due on due Goal Lipid Panel. Due on due Goal Urinalysis. Due on due Goal Eye Exam. Due on due Goal Foot Exam. Due on due Goal Tdap. Due on due Goal BMP fasting. Due on due Goal ECG. Due on due Goal Depression scree selin. Due on due Goal TD Vaccine. Due on due Goal Urine Microalbumin. Due on due Goal Hemoglobin A1C. Due on due Goal Echocardiogram. Due on due Goal Hemoglobin A1C. Due on due Goal TD Vaccine. Due on due Goal Eye Exam. Due on due Goal Urine Microalbumin. Due on due Goal Foot Exam. Due on due Goal Urinalysis. Due on due Goal Echocardiogram. Due on due Goal Lipid Panel. Due on 014 due Goal BMP fasting. Due on 010 due Goal ECG. Due on due Goal H&P. Due on due Goal Tdap. Due on due Goal Diabetes screening due Goal Depression scree selin. Due on due Referral Referred To: Michelle Apodaca [address], [place], [phone] Ordered: Referrals: Cardiology. Michelle Apodaca. Evaluate and treat Appointment date/timeframe: 03/03/2020 ordered Referral Ordered: C-SPINE WiITH FLEX/EXT ordered Referral Ordered: Referrals: Endocrinology, Diabetes and Metabolism. Evaluate and treat ordered Patient Education Diabetes Blood Sugar Em ergencies: You~ completed Patient Education Orthostatic Hypotension : After Your V~ completed Patient Education Dizziness: After Your V isit completed Future Order: Lab Order A1C ([id number]), Se nt on: Sent Future Order: Lab Order A1C ([id number]), Se nt on: Sent Future Order: Lab Order CBC W/ D iff ([id number]), Sent on: Sent Future Order: Lab Order LIPID PA FAISAL (), Sent on: Sent Future Order: Lab Order CMP ([id number]), Se nt on: Sent Future Order: Lab Order MICROALB UMIN/CREATININE RATIO ([id number]), Sent on: Sent Future Order: Lab Order BMP ([id number]), Se nt on: Sent Future Order: Lab Order A1C ([id number]), Se nt on: Sent Future Order: Lab Order CBC W/ D iff ([id number]), Sent on: Sent Future Order: Lab Order CMP ([id number]), Se nt on: Sent Future Order: Lab Order TSH ([id number]), Se nt on: Sent Future Order: Lab Order KETONES- ACETONE ([id number]), Sent on: Sent Future Order: Lab Order CBC W/ D iff ([id number]), Sent on: Sent Future Order: Lab Order CMP ([id number]), Se nt on: Sent Future Order: Lab Order LIPID PA FAISAL ([id number]), Sent on: Sent Future Order: Lab Order MICROALB UMIN/CREATININE RATIO ([id number]), Sent on: Sent History Of Present Illness Encounter Date Complaint History Of Prese nt Illness Follow-up Labs Patient came in today for review of current illness, medication and most recent labs.Due to concern for Covid-19 the patient was provided service today via a telephone call. Patient was informed that all the same confidentiality/information practices applied. The patient was located at their home and the provider was located at [facility] in [facility]. The people participating in this visits were the patient, Sean Prajapati, nurse, Sonya Lucero, and provider Lazaro Iverson APRN, CNP. The visit lasted 15 minutes. All concerns and questions were answered.Patient presents today for review of his lab work. His hemoglobin A1c was noted to be very elevated. We discussed with the patient the reasons to keep his blood pressure within control. The patient does have vision problems and is in currently undergoing eye injections. He also reports that he is having increasing difficulty with night vision. The patient was educated that with continued elevated glucoses these vision issues will continue to progress. We discussed the need to follow a precise diet and to change his medications. The patient is reluctant to change his medications as he has a hard time paying for his medicines and most of the medicines are very expensive. The patient refuses to change his medications at this time but states that he will work on his diet and exercise over the next 3 months. The patient is noncompliant with his 3-month labs. The importance of these 3-month labs in preventing further complications were discussed with the patient. He states understanding and is agreeable to 3-month labs at this time. He denies any other issues at this time cough cough (comments) Due to concern for Covid-19 the patient was provided service today via a telephone visit. Patient was informed that all the same confidentiality/information practices applied. The patient was located at their home and the the provider was located at [facility] in [facility]. The people participating in this visits were the patient, Sean Prajapati, nurse, Naima Winston, and provider Lazaro Iverson APRN, CNP. The visit lasted 10 minutes. All concerns and questions were answered.The patient presents today for complaints of a cough. He states that he has had a dry nonproductive cough for approximately 1 month. He states he feels like he has throat and phlegm in the back of his throat at all times. He does complain of some shortness of breath with exertion. He states he feels like his lungs are full. He denies any fever or chills or wheezing. He states his symptoms have gotten worse since they have started taking the beings out. He did use a neighbors albuterol nebulizer and had significant relief. We will start him on azithromycin along with an albuterol inhaler. He was also encouraged to obtain rmcn-mis-guchtdo antihistamines to help with the symptoms. The patient was asking about a CT scan that was completed at [facility] that possibly showed some pulmonary nodules. I do not have the results of that at this time we will call and try to obtain the results. DIZZINESS.. Patient states h is dizziness is getting worse and no better.Patient states that he has had a previous complaint of dizziness and it seems to be getting worse. He had been seen last in November and had a blood pressure medication change and fluid also noted in his ears at that time. He states that the spells that he is having has been 2-3 times a day when he stands up and moves around feeling somewhat unsteady. He denies any ear pain today Denies any nausea or vomiting, sinus pressure. Denies any history of vertigo or headaches. States blood glucose levels have been within normal range. States that he was diagnosed with macular degeneration and has been having treatments for this. He does feel like his eye prescription needs to be modified but does not feel that it is significant. Orthostatic blood pressures were taken today with supine blood pressure 130/92 pulse 100, sitting 130/90 pulse 100, and standing 90/72 pulse 108. No deficits noted with neurovascular exam. It was discussed we will send a referral for cardiac workup and also recommend that compression hose be worn. patient verbalized understanding. DIZZY.. (comments) Patient prese nts today with complaints of dizziness. The dizziness occurs after he has been standing for about 10 minutes and resolves when he sits down. He reports that he is never dizzy when sitting and was not dizzy when he lies down. He states that he has an episode of dizziness every day but is not dizzy every time he stands up. He denies any palpitations or racing heart rate. He denies any slurring of speech or facial droop when he has these issues. He does not feel like he will pass out. The patient did bring with him a list of his blood sugars since restarting the by durian. His blood sugars are much improved. His blood sugar since starting the bydureon have all been less than 200. He states he and his are working very hard on following a proper diet and increasing the exercise along with taking the medications appropriately. He has lost 6 pounds since his last visit the patient was encouraged to continue and congratulated on the good work.The patient's blood pressure is noted to be very elevated today. We will adjust his blood pressure medications by adding amlodipine 2.5 mg. The patient was encouraged to check his blood pressure at home and call the clinic if his blood pressure remains greater than 130/80. The patient was educated on the side effect of swelling related to the amlodipine. The patient states he will watch for the side effect and call the office if this occurs. DIZZY.. Patient complain s of dizziness afeter he has been on his feet for awhile. He feels like he is not as sure footed as he used to be. TROUBLE SEEING Patient has been having trouble seeing and has seen an eye doctor that tells him it is his diabetes. He has an appt. with a specialist but he needs to get his diabetes under control. TROUBLE SEEING (comments) She pr esents today for a follow-up from an ophthalmology appointment. He was seen by his countersinker on Sunday due to vision changes. The patient reports that he first noticed vision changes in his right eye that resolved. However, he he soon was experiencing vision changes in his left eye also. 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 The patient's vision at the countersinker was 20/70 in both eyes. The patient states that he stopped taking his medication several months ago and has not been monitoring his blood sugar. The patient does not want to restart the metformin due to diarrheal symptoms that he has had with that medication. He has also been on Januvia, Actos, and Bydureon in the past. The Actos was stopped due to the cancer risk. He does not want to restart that medication. Januvia and Bydureon are both very expensive for the patient. He was on the Bydureon and did very well with that. Despite the cost the patient and went to restart the Bydureon on check in hopes to quickly bring the blood sugar back to normal range and prevent further eye damage. The patient's blood pressure was also noted to be very elevated today. The patient has not been taking his medications. He was instructed to restart his medications. After he restarts his medications he is to monitor his blood pressure daily and if his blood pressure remains greater than 130/80 he is to return to the clinic the patient is to return to the clinic in 1 month for follow-up on his blood pressure and blood sugars. Patient states understanding is agreeable plan of care at this time. Dizziness (comments) 49 YO M, [place] TH HX OF HTN, TYPE II DMNON COMPLIANT WITH MEDICATIONSC/O DIZZINESS X FEW MONTHSNO HEADACHE- NO N/VPT REFUSED ANY LABS DUE TO COSTHE AGREED TO GO FOR BMP-PRIOR TO CHANGE IN MEDICATIONS-ACCUCHECK WAS HIGHHE LEFT BECAUSE HIS MOTHER WAS TAKEN TO ER-WHILE HE WAS HEREHE WAS ADVISED TO FOLLOWUP WITH PCP-ELMA OR THIS CLINIC [facility]-OR ER IF WORSE blood sugar Blood glucose fi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
== END 2024-12-26 18:48 | disposition home or self-care (01) ==
LOC: CHSIMG 18:52
DX: R10.9 Unspecified abdominal pain (principal); R19.00 Intra-abdominal and pelvic swelling, mass and lump, unspecified site; J90 Pleural effusion, not elsewhere classified; K59.89 Other specified functional intestinal disorders; R16.0 Hepatomegaly, not elsewhere classified; R60.1 Generalized edema
CPT/HCPCS: 71250; 74176